=== PATIENT | male | born 1945 | race Caucasian/White ===

== ENCOUNTER 2017-07-03 09:53 | Inpatient (IN) ==
[2017-07-03 10:51] LABS: Basophils # 0.1 10*3/uL (0.0-0.2); Basophils % 0.9 % (0.0-0.8); Eosinophils # 0.6 10*3/uL (0.0-0.87); Eosinophils % 6.5 % (0.00-10.9); Hematocrit 42.9 VOL% (42.0-52.0); Hemoglobin 15.5 GM/DL (14.0-18.0); Immature Granulocytes % 0.6 %; Immature Granulocytes Absolute 0.05 #; Lymphocytes % 33.1 % (21.2-54.2); Mean Corpuscular HGB Conc 36.1 GM/DL (32-36); Mean Corpuscular Hemoglobin 33 PG (27-34); Mean Corpuscular Volume 91.1 FL (87-102); Mean Platelet Volume 10.2 FL (9.6-12.0); Monocytes # 0.8 10*3/uL (0.11-0.8); Neutrophils # 4.5 10*3/uL (1.4-7.4); Neutrophils % 49.9 % (38.7-73.9); Platelet Count 297 T/CUMM (130-400); Red Blood Count 4.71 MC/CUMM (3.8-5.5); Red Cell Distribution Width 12.3 % (9.3-17.3); White Blood Count 8.9 T/CUMM (4-12)
[2017-07-03 10:59] LABS: PT Patient Result 10.6 SECS; Partial Thromboplastin Time 25.2 SECS (0-40)
[2017-07-03 11:19] LABS: Alanine Aminotransferase 46 U/L (16-61); Albumin 3.7 G/DL (3.4-5.0); Alkaline Phosphatase 85 U/L (45-117); Aspartate Amino Transferase 21 U/L (0-37); Blood Urea Nitrogen 24 MG/DL (7-18); Calcium 9.2 MG/DL (8.5-10.1); Glucose 199 MG/DL (74-106); Osmolality,Calculated 286.5 MOS/KG (273-304); Sodium 139 MMOL/L (136-145); Total Protein 7.2 G/DL (6.4-8.3)
[2017-07-03 12:32] LABS: Apearance,Urine CLEAR (Clear); Bilirubin,Urine Negative (Negative); Blood, Urine Negative (Negative); Glucose,Urine (UA) Negative (Negative); Hyaline Casts,Urine 2 /LPF (0-3); Ketones,Urine 5 mg/dL (Negative); Mucus,Urine Occasional /LPF (Occasional); Nitrite,Urine Negative (Negative); Protein,Urine Negative; Urine Color Yellow (Yellow); Urine Specific Gravity 1.023 (1.001-1.035); Urine Urobilinogen < 2.0 EU/DL (0.2-1.0); WBC,Urine 1 /HPF (0-6)
[2017-07-03 12:40] LABS: Barbiturates Screen,Urine Negative (Negative); Benzodiazepines Screen,Urine Negative (Negative); Cannabinoid Screen,Urine Negative (Negative); Opiate Screen,Urine Negative (Negative); Phencyclidine Screen,Urine Negative (Negative)
[2017-07-03] MEDS ORDERED: ONDANSETRON 4 MG/2 ML VIAL IV PRN (14:35)
[2017-07-03] MEDS ORDERED: ACETAMINOPHEN 325 MG TABLET PO PRN (14:35)
[2017-07-03] MEDS ORDERED: INFLUENZA VIRUS VACCINE 0.5 ML SYRINGE IM ONE (15:00)
[2017-07-03] MEDS ORDERED: GLUCAGON 1 MG VIAL IM PRN (15:09)
[2017-07-03] MEDS ORDERED: DEXTROSE 50% 25 GM/50 ML VIAL IV PRN (15:09)
[2017-07-03] MEDS ORDERED: methylPREDNISolone 4 MG TABLET PO SCH (16:30)
[2017-07-03] MEDS: SODIUM CHLORIDE 0.9% 1,000 ML IV SCH (16:42)
[2017-07-03] MEDS: methylPREDNISolone 4 MG TABLET PO SCH ×2 (18:02→20:10)
[2017-07-03] MEDS: DOCUSATE SODIUM 100 MG CAPSULE PO SCH (20:10)
[2017-07-03] MEDS: ACYCLOVIR 200 MG CAPSULE PO SCH (20:10)
[2017-07-03] MEDS ORDERED: tiZANidine 4 MG TABLET PO PRN (21:28)
[2017-07-03] MEDS ORDERED: traMADol 50 MG TABLET PO PRN (21:28)
[2017-07-03] MEDS ORDERED: AMITRIPTYLINE 50 MG TABLET PO SCH (21:30)
[2017-07-03] MEDS ORDERED: PRAVASTATIN 40 MG TABLET PO SCH (21:30)
[2017-07-03] MEDS: GABAPENTIN 300 MG CAPSULE PO SCH (22:06)
[2017-07-04] MEDS: SODIUM CHLORIDE 0.9% 1,000 ML IV SCH ×2 (00:41→10:57)
[2017-07-04 07:00] LABS: Basophils % 0.3 % (0.0-0.8); Eosinophils % 0.3 % (0.00-10.9); Hematocrit 41.8 VOL% (42.0-52.0); Hemoglobin 14.7 GM/DL (14.0-18.0); Immature Granulocytes % 0.8 %; Immature Granulocytes Absolute 0.07 #; Lymphocytes # 1.4 10*3/uL (1.4-4.0); Lymphocytes % 15.7 % (21.2-54.2); Mean Corpuscular HGB Conc 35.2 GM/DL (32-36); Mean Corpuscular Hemoglobin 32 PG (27-34); Mean Corpuscular Volume 91.3 FL (87-102); Mean Platelet Volume 10.1 FL (9.6-12.0); Monocytes # 0.3 10*3/uL (0.11-0.8); Monocytes % 3.1 % (1.7-12.7); Neutrophils # 7.3 10*3/uL (1.4-7.4); Neutrophils % 79.8 % (38.7-73.9); Platelet Count 287 T/CUMM (130-400); Red Blood Count 4.58 MC/CUMM (3.8-5.5); Red Cell Distribution Width 12.2 % (9.3-17.3); White Blood Count 9.1 T/CUMM (4-12)
[2017-07-04 07:23] LABS: Calcium 8.8 MG/DL (8.5-10.1); Osmolality,Calculated 288.4 MOS/KG (273-304); Potassium 4.6 MMOL/L (3.5-5.1)
[2017-07-04] MEDS ORDERED: INSULIN LISPRO 100 UNIT/ML SUBCUT SCH (07:30)
[2017-07-04] MEDS ORDERED: methylPREDNISolone 4 MG TABLET PO SCH ×2 (08:00→09:00)
[2017-07-04 08:20] VITALS: BP 166/77
[2017-07-04] MEDS ORDERED: CARBIDOPA/LEVODOPA 25-100 MG TABLET PO SCH (09:00)
[2017-07-04] MEDS ORDERED: PANTOPRAZOLE 40 MG TABLET PO SCH (09:00)
[2017-07-04] MEDS ORDERED: INDAPAMIDE 2.5 MG TABLET PO SCH (09:00)
[2017-07-04] MEDS ORDERED: BENAZEPRIL 10 MG TABLET PO SCH (09:00)
[2017-07-04] MEDS ORDERED: ASPIRIN EC 81 MG TABLET PO SCH (09:00)
[2017-07-04] MEDS ORDERED: glyBURIDE/METFORMIN 2.5-500 MG TABLET PO SCH (09:00)
[2017-07-04] MEDS ORDERED: NABUMETONE 750 MG TABLET PO SCH (09:00)
[2017-07-04] MEDS: ACYCLOVIR 200 MG CAPSULE PO SCH (09:40)
[2017-07-04] MEDS: DOCUSATE SODIUM 100 MG CAPSULE PO SCH (09:40)
[2017-07-04] MEDS: GABAPENTIN 300 MG CAPSULE PO SCH (09:40)
[2017-07-04] MEDS: methylPREDNISolone 4 MG TABLET PO SCH (09:42)
== END 2017-07-04 11:25 | disposition home or self-care (01) | DRG 74 ==
LOC: N.ED 09:53 → INTOOBSV 12:42 → N.EDINP 12:42 → N.4E 14:27
PROVIDERS: ADMIT Family Medicine; ATTEND Family Medicine

== ENCOUNTER 2018-12-18 10:29 | Inpatient (IN) ==
[~2018-12-18 10:29] MED LIST: MAGNESIUM SULF RIDER 2 GM in PREMIX 1 EACH IV PRN; POTASSIUM CHLORIDE RIDER 10 MEQ in PREMIX 1 EACH IV PRN
[2018-12-18] MEDS ORDERED: diphenhydrAMINE CAP 25 MG CAPSULE ONE (11:28)
[2018-12-18] MEDS ORDERED: DIAZEPAM 5 MG TABLET ONE (11:28)
[2018-12-18] MEDS ORDERED: ASPIRIN 325 MG TABLET ONE (11:28)
[2018-12-18] MEDS: SODIUM CHLORIDE 0.9% 1,000 ML IV SCH (11:43)
[2018-12-18] MEDS ORDERED: MIDAZOLAM 2 MG/2 ML VIAL ONE (11:52)
[2018-12-18] MEDS ORDERED: NITROGLYCERIN DRIP 50 MG/250 ML BOTTLE IV ONE (11:52)
[2018-12-18] MEDS ORDERED: VERAPAMIL 5 MG/2 ML VIAL ONE (11:52)
[2018-12-18] MEDS ORDERED: LIDOCAINE 1% 20 ML VIAL ONE (11:52)
[2018-12-18] MEDS ORDERED: fentaNYL 100 MCG/2 ML VIAL ONE (11:52)
[2018-12-18] MEDS ORDERED: DIAZEPAM 5 MG TABLET PO ONE (12:00)
[2018-12-18] MEDS ORDERED: diphenhydrAMINE CAP 25 MG CAPSULE PO ONE (12:00)
[2018-12-18] MEDS ORDERED: ASPIRIN 325 MG TABLET PO ONE (12:00)
[2018-12-18] MEDS ORDERED: ENOXAPARIN 60 MG/0.6 ML SYRINGE ONE (12:14)
[2018-12-18] MEDS ORDERED: ONDANSETRON 4 MG/2 ML VIAL IV PRN (13:01)
[2018-12-18] MEDS ORDERED: ZALEPLON 5 MG CAPSULE PO PRN (13:01)
[2018-12-18] MEDS ORDERED: NITROGLYCERIN SL 0.4 MG TABLET SL PRN (13:01)
[2018-12-18] MEDS ORDERED: traMADol 50 MG TABLET PO PRN (13:09)
[2018-12-18] MEDS ORDERED: tiZANidine 4 MG TABLET PO PRN (13:09)
[2018-12-18] MEDS ORDERED: methylPREDNISolone 4 MG TABLET PO SCH (13:30)
[2018-12-18] MEDS ORDERED: ALUMINUM/MAGNES/SIMETH MAX STR 30 ML UDCUP PO PRN (15:06)
[2018-12-18] MEDS: ACYCLOVIR 200 MG CAPSULE PO SCH ×2 (15:29→22:16)
[2018-12-18] MEDS: methylPREDNISolone 4 MG TABLET PO SCH ×2 (17:17→22:14)
[2018-12-18] MEDS: AMITRIPTYLINE 50 MG TABLET PO SCH (22:13)
[2018-12-18] MEDS: METOPROLOL TARTRATE 25 MG TABLET PO SCH (22:13)
[2018-12-18] MEDS: BENAZEPRIL 10 MG TABLET PO SCH (22:13)
[2018-12-18] MEDS: GABAPENTIN 300 MG CAPSULE PO SCH (22:14)
[2018-12-18] MEDS: CARBIDOPA/LEVODOPA 25-100 MG TABLET PO SCH (22:15)
[2018-12-18] MEDS: NABUMETONE 500 MG TABLET PO SCH (22:15)
[2018-12-18] MEDS: SIMVASTATIN 20 MG TABLET PO SCH (22:16)
[2018-12-18] MEDS ORDERED: DEXTROSE 50% 25 GM/50 ML SYRINGE IV PRN (23:04)
[2018-12-18] MEDS ORDERED: GLUCAGON 1 MG VIAL IM PRN (23:04)
[2018-12-18] MEDS: INSULIN LISPRO 100 UNIT/ML SUBCUT SCH (23:21)
[2018-12-19 05:01] LABS: Basophils # 0.1 10*3/uL (0.0-0.2); Basophils % 0.4 % (0.0-0.8); Eosinophils # 0.2 10*3/uL (0.0-0.87); Eosinophils % 1.4 % (0.00-10.9); Hematocrit 40.3 VOL% (42.0-52.0); Hemoglobin 13.3 GM/DL (14.0-18.0); Immature Granulocytes % 1.1 %; Immature Granulocytes Absolute 0.13 #; Lymphocytes # 1.4 10*3/uL (1.4-4.0); Lymphocytes % 12.3 % (21.2-54.2); Mean Corpuscular Volume 96.6 FL (87-102); Mean Platelet Volume 10.4 FL (9.6-12.0); Monocytes % 2.6 % (1.7-12.7); Neutrophils % 82.2 % (38.7-73.9); Platelet Count 278 T/CUMM (130-400); Red Blood Count 4.17 MC/CUMM (3.8-5.5); Red Cell Distribution Width 12.4 % (9.3-17.3); White Blood Count 11.5 T/CUMM (4-12)
[2018-12-19 05:26] LABS: Calcium 8.8 MG/DL (8.5-10.1); Osmolality,Calculated 293.3 MOS/KG (273-304); Risk Ratio 4.25; VLDL CHOLESTEROL 17.8 MG/DL
[2018-12-19] MEDS ORDERED: ENOXAPARIN 40 MG/0.4 ML SYRINGE SUBCUT SCH (06:00)
[2018-12-19] MEDS ORDERED: CEFUROXIME INJ 1,500 MG in SYRINGE 1 EACH IV ONE (06:27)
[2018-12-19] MEDS ORDERED: DEXTROSE 50% 25 GM/50 ML VIAL IV PRN (06:27)
[2018-12-19] MEDS: NABUMETONE 500 MG TABLET PO SCH ×2 (08:45→21:14)
[2018-12-19] MEDS: ENALAPRIL 10 MG TABLET PO SCH (08:45)
[2018-12-19] MEDS: METOPROLOL TARTRATE 25 MG TABLET PO SCH ×2 (08:45→21:12)
[2018-12-19] MEDS: ASPIRIN EC 81 MG TABLET PO SCH (08:45)
[2018-12-19] MEDS: PANTOPRAZOLE 40 MG TABLET PO SCH (08:45)
[2018-12-19] MEDS: INSULIN LISPRO 100 UNIT/ML SUBCUT SCH ×3 (08:46→17:17)
[2018-12-19] MEDS: INDAPAMIDE 2.5 MG TABLET PO SCH (08:46)
[2018-12-19] MEDS: PIOGLITAZONE 15 MG TABLET PO SCH (08:46)
[2018-12-19] MEDS: ACYCLOVIR 200 MG CAPSULE PO SCH ×3 (08:46→21:13)
[2018-12-19] MEDS: GABAPENTIN 600 MG TABLET PO SCH (08:46)
[2018-12-19] MEDS: methylPREDNISolone 4 MG TABLET PO SCH ×4 (08:46→21:15)
[2018-12-19] MEDS: SODIUM CHLORIDE 0.9% 1,000 ML IV SCH ×3 (08:47→21:18)
[2018-12-19] MEDS ORDERED: diphenhydrAMINE CAP 25 MG CAPSULE PO PRN (10:31)
[2018-12-19] MEDS: CHLORHEXIDINE 4% SOLN 118 ML BOTTLE TOP SCH (14:13)
[2018-12-19] MEDS: CHLORHEXIDINE 0.12% ORAL RINSE 60 ML BOTTLE SWISH/SPIT SCH ×2 (17:17→21:12)
[2018-12-19] MEDS: BENAZEPRIL 10 MG TABLET PO SCH (21:08)
[2018-12-19] MEDS: AMITRIPTYLINE 50 MG TABLET PO SCH (21:12)
[2018-12-19] MEDS: GABAPENTIN 300 MG CAPSULE PO SCH (21:13)
[2018-12-19] MEDS: SIMVASTATIN 20 MG TABLET PO SCH (21:15)
[2018-12-19] MEDS: CARBIDOPA/LEVODOPA 25-100 MG TABLET PO SCH (21:17)
[2018-12-20] MEDS: INSULIN LISPRO 100 UNIT/ML SUBCUT SCH (00:06)
[2018-12-20] MEDS ORDERED: PAPAVERINE 60 MG/2 ML VIAL ONE (04:24)
[2018-12-20] MEDS ORDERED: VANCOMYCIN 1,000 MG VIAL ONE (04:25)
[2018-12-20] MEDS ORDERED: CEFUROXIME 1,500 MG VIAL IV ONE (05:30)
[2018-12-20] MEDS ORDERED: CEFUROXIME INJ 1,500 MG in SODIUM CHLORIDE 0.9% 100 ML IV ONE (05:49)
[2018-12-20] MEDS: ENALAPRIL 10 MG TABLET PO SCH (05:51)
[2018-12-20] MEDS ORDERED: CEFUROXIME INJ 1,500 MG in SYRINGE 1 EACH IV ONE (05:51)
[2018-12-20] MEDS: METOPROLOL TARTRATE 25 MG TABLET PO SCH (05:51)
[2018-12-20] MEDS ORDERED: MIDAZOLAM 10 MG/2 ML VIAL ONE (06:10)
[2018-12-20] MEDS ORDERED: SUFentanil 250 MCG/5 ML AMP ONE ×2 (06:10)
[2018-12-20] MEDS ORDERED: DIAZEPAM 5 MG TABLET PO ONE (06:30)
[2018-12-20] MEDS: SODIUM CHLORIDE 0.9% 1,000 ML IV SCH (07:01)
[2018-12-20] MEDS ORDERED: metFORMIN 500 MG TABLET PO SCH (07:30)
[2018-12-20 07:42] LABS: ABG Base Excess -0.3 MMOL/L (-2.5-2.5); ABG HCO3 24.2 MMOL/L (20-26); ABG Oxygen Saturation 99.9 % (95-100); ABG PH 7.366 (7.35-7.45); ABG TCO2 22.3 MMOL/L (23-27); Glucose Heart Surgery 241 MG/DL (74-106); Hematocrit Heart Surgery 37.7 PERCENT (42-52); Hemoglobin Heart Surgery 12.3 G/DL (14.0-18.0); Ionized Calcium Arterial 1.16 MMOL/L (1.21-1.46); PH Patient Temp Arterial 7.366; Patient Temperature 37 CELCIUS; Potassium Heart/CVR 4.4 MMOL/L (3.5-5.1); Sodium Heart/CVR 140 MMOL/L (135-145)
[2018-12-20 07:54] LABS: Apearance,Urine CLEAR (Clear); Bacteria,Urine Occasional /HPF (Few); Bilirubin,Urine Negative (Negative); Blood, Urine Negative (Negative); Glucose,Urine (UA) 150 mg/dL (Negative); Hyaline Casts,Urine 3 /LPF (0-3); Ketones,Urine Negative (Negative); Mucus,Urine Occasional /LPF (Occasional); Nitrite,Urine Negative (Negative); Protein,Urine Negative; RBC,Urine 2 /HPF (0-4); Urine Color Yellow (Yellow); Urine Specific Gravity 1.023 (1.001-1.035); Urine Urobilinogen < 2.0 EU/DL (0.2-1.0); WBC,Urine 2 /HPF (0-6)
[2018-12-20] MEDS ORDERED: PHENYLEPHRINE DRIP 40 MG/250 ML PREMIX IV ONE (08:42)
[2018-12-20] MEDS ORDERED: NITROPRUSSIDE 50 MG/2 ML VIAL ONE (08:43)
[2018-12-20] MEDS ORDERED: POTASSIUM CHLORIDE RIDER 100 ML IV ONE (08:43)
[2018-12-20] MEDS ORDERED: HEPARIN/NACL 0.9% 2 UNITS/ML 500 ML IV ONE (10:12)
[2018-12-20] MEDS ORDERED: PHENYLEPHRINE DRIP 20 MG/250 ML PREMIX IV ONE ×2 (10:12→13:30)
[2018-12-20] MEDS ORDERED: NITROGLYCERIN DRIP 50 MG/250 ML BOTTLE IV ONE (10:12)
[2018-12-20 10:13] LABS: Hemoglobin Heart Surgery 8.4 G/DL (14.0-18.0); PCO2 Patient Temp Venous 37.4 MM HG; PH Patient Temp Venous 7.41; PO2 Patient Temp Venous 40.2 MM HG; Potassium Heart/CVR 4.6 MMOL/L (3.5-5.1); VBG Base Excess -0.6 MEQ/L (0-4); VBG HCO3 23.7 MEQ/L (24-28); VBG Oxygen Saturation 82.3 %; VBG PCO2 41.2 MMHG (41-51); VBG PH 7.381; VBG PO2 46.1 MMHG (17-40)
[2018-12-20] MEDS ORDERED: AMINOCAPROIC ACID 5,000 MG/20 ML VIAL ONE (10:34)
[2018-12-20] MEDS ORDERED: SODIUM CHLORIDE 0.9% 100 ML IV ONE (10:35)
[2018-12-20] MEDS ORDERED: SODIUM CHLORIDE 0.9% 250 ML IV ONE (10:35)
[2018-12-20] MEDS ORDERED: LACTATED RINGERS 1,000 ML IV ONE (10:35)
[2018-12-20] MEDS ORDERED: ETOMIDATE 40 MG/20 ML VIAL IV ONE (10:35)
[2018-12-20] MEDS ORDERED: VECURONIUM 10 MG VIAL IV ONE (10:35)
[2018-12-20] MEDS ORDERED: MINERAL OIL/PETROLATUM OPH OINT 3.5 GM TUBE ONE (10:35)
[2018-12-20] MEDS ORDERED: SODIUM CHLORIDE 0.9% 1,000 ML IV ONE (10:35)
[2018-12-20] MEDS ORDERED: CALCIUM CHLORIDE 1,000 MG/10 ML VIAL IV ONE (10:35)
[2018-12-20 10:44] LABS: Hematocrit Heart Surgery 24.8 PERCENT (42-52); PCO2 Patient Temp Venous 32.9 MM HG; PH Patient Temp Venous 7.443; PO2 Patient Temp Venous 37.7 MM HG; Potassium Heart/CVR 4.9 MMOL/L (3.5-5.1); VBG Base Excess -1.1 MEQ/L (0-4); VBG HCO3 23.3 MEQ/L (24-28); VBG Oxygen Saturation 83.2 %; VBG PH 7.399; VBG PO2 46.4 MMHG (17-40)
[2018-12-20 11:14] LABS: Hemoglobin Heart Surgery 8.7 G/DL (14.0-18.0); PCO2 Patient Temp Venous 32.2 MM HG; PH Patient Temp Venous 7.436; PO2 Patient Temp Venous 37.3 MM HG; Potassium Heart/CVR 5.7 MMOL/L (3.5-5.1); VBG Base Excess -2.7 MEQ/L (0-4); VBG HCO3 21.4 MEQ/L (24-28); VBG Oxygen Saturation 74.2 %; VBG PCO2 33.6 MMHG (41-51); VBG PH 7.421
[2018-12-20] MEDS ORDERED: MANNITOL 100 GM/500 ML BAG IV ONE (11:43)
[2018-12-20] MEDS ORDERED: DEXTROSE 5% KCL 20 MEQ 20 MEQ/1,000 ML BAG IV ONE (11:44)
[2018-12-20] MEDS ORDERED: ALBUMIN 25% 25 GM/100 ML VIAL IV ONE (11:44)
[2018-12-20] MEDS ORDERED: PROTAMINE SULFATE 250 MG/25 ML VIAL IV ONE (11:44)
[2018-12-20] MEDS ORDERED: MAGNESIUM SULFATE 5 GM/10 ML VIAL IV ONE (11:44)
[2018-12-20] MEDS ORDERED: SODIUM BICARBONATE 50 MEQ/50 ML VIAL IV ONE (11:44)
[2018-12-20] MEDS ORDERED: HEPARIN 10,000 UNIT/10 ML VIAL ONE (11:45)
[2018-12-20] MEDS ORDERED: FUROSEMIDE 20 MG/2 ML VIAL ONE (11:45)
[2018-12-20] MEDS ORDERED: methylPREDNISolone SOD SUC 1,000 MG/8 ML VIAL ONE (11:45)
[2018-12-20 12:02] LABS: ABG Base Excess -2.2 MMOL/L (-2.5-2.5); ABG HCO3 22.6 MMOL/L (20-26); ABG Oxygen Saturation 99.4 % (95-100); ABG PCO2 38.3 MM HG (35-48); ABG PH 7.379 (7.35-7.45); ABG TCO2 20.7 MMOL/L (23-27); Glucose Heart Surgery 347 MG/DL (74-106); Hematocrit Heart Surgery 29.8 PERCENT (42-52); Hemoglobin Heart Surgery 9.6 G/DL (14.0-18.0); Ionized Calcium Arterial 1.17 MMOL/L (1.21-1.46); PCO2 Patient Temp Arterial 38.3 MMHG; PH Patient Temp Arterial 7.379; Patient Temperature 37 CELCIUS; Potassium Heart/CVR 4.5 MMOL/L (3.5-5.1); Sodium Heart/CVR 136 MMOL/L (135-145)
[2018-12-20] MEDS: LACTATED RINGERS 1,000 ML IV PRN ×3 (12:45→16:46)
[2018-12-20] MEDS ORDERED: ALBUMIN 5% 12.5 GM/250 ML VIAL IV ONE (13:12)
[2018-12-20] MEDS ORDERED: NITROPRUSSIDE 100 MG in DEXTROSE 5% 250 ML IV PRN (13:30)
[2018-12-20] MEDS ORDERED: MAGNESIUM SULF RIDER 2 GM in PREMIX 1 EACH IV PRN (13:30)
[2018-12-20] MEDS ORDERED: ONDANSETRON 4 MG/2 ML VIAL IV PRN (13:30)
[2018-12-20] MEDS ORDERED: ACETAMINOPHEN 650 MG SUPP RECTAL PRN (13:30)
[2018-12-20] MEDS ORDERED: SODIUM CHLORIDE 0.45% 1,000 ML IV SCH ×2 (13:30)
[2018-12-20] MEDS ORDERED: POTASSIUM CHLORIDE RIDER 10 MEQ in PREMIX 1 EACH IV PRN (13:30)
[2018-12-20] MEDS ORDERED: LACTATED RINGERS 250 ML IV PRN (13:30)
[2018-12-20] MEDS ORDERED: VECURONIUM 10 MG VIAL IV PRN ×2 (13:30)
[2018-12-20] MEDS ORDERED: MAGNESIUM SULF RIDER 4 GM in PREMIX 1 EACH IV PRN (13:30)
[2018-12-20] MEDS ORDERED: DEXTROSE 50% 25 GM/50 ML SYRINGE IV PRN ×2 (13:30)
[2018-12-20] MEDS ORDERED: MORPHINE 10 MG/1 ML VIAL IV PRN (13:30)
[2018-12-20] MEDS ORDERED: INSULIN REGULAR 100 UNIT/ML IV ONE (13:30)
[2018-12-20] MEDS ORDERED: MIDAZOLAM 10 MG/2 ML VIAL IV PRN (13:30)
[2018-12-20] MEDS ORDERED: PHENYLEPHRINE DRIP 40 MG/250 ML PREMIX IV PRN (13:30)
[2018-12-20] MEDS ORDERED: MIDAZOLAM 2 MG/2 ML VIAL IV PRN (13:30)
[2018-12-20] MEDS ORDERED: CALCIUM CHLORIDE 1,000 MG/10 ML SYRINGE IV PRN (13:30)
[2018-12-20] MEDS ORDERED: KETOROLAC 30 MG/1 ML VIAL IV SCH (13:30)
[2018-12-20 13:37] LABS: Basophils # 0.1 10*3/uL (0.0-0.2); Basophils % 0.4 % (0.0-0.8); Eosinophils # 0.4 10*3/uL (0.0-0.87); Eosinophils % 1.9 % (0.00-10.9); Hematocrit 31.2 VOL% (42.0-52.0); Hemoglobin 9.9 GM/DL (14.0-18.0); Immature Granulocytes % 1.6 %; Immature Granulocytes Absolute 0.35 #; Lymphocytes # 3.1 10*3/uL (1.4-4.0); Lymphocytes % 14.2 % (21.2-54.2); Mean Corpuscular HGB Conc 31.7 GM/DL (32-36); Mean Corpuscular Volume 99.4 FL (87-102); Mean Platelet Volume 10.4 FL (9.6-12.0); Monocytes % 5.6 % (1.7-12.7); Neutrophils % 76.3 % (38.7-73.9); Platelet Count 246 T/CUMM (130-400); Red Blood Count 3.14 MC/CUMM (3.8-5.5); Red Cell Distribution Width 13.1 % (9.3-17.3); White Blood Count 21.8 T/CUMM (4-12)
[2018-12-20 13:38] LABS: ABG Base Excess -3.8 MMOL/L (-2.5-2.5); ABG HCO3 21.2 MMOL/L (20-26); ABG Oxygen Saturation 96.2 % (95-100); ABG PH 7.307 (7.35-7.45); ABG PO2 88.1 MM HG (80-95); ABG TCO2 20.6 MMOL/L (23-27); Glucose Heart Surgery 333 MG/DL (74-106); Hematocrit Heart Surgery 31.9 PERCENT (42-52); Hemoglobin Heart Surgery 10.3 G/DL (14.0-18.0); Potassium Heart/CVR 4.2 MMOL/L (3.5-5.1)
[2018-12-20 13:42] LABS: INR 1.1; PT Patient Result 11.9 SECS; Partial Thromboplastin Time 23.5 SECS (0-40)
[2018-12-20 13:52] LABS: Albumin 3.1 G/DL (3.4-5.0); Bilirubin,Total 0.5 MG/DL (0.2-1.0); Osmolality,Calculated 303.1 MOS/KG (273-304); Total Protein 5.6 G/DL (6.4-8.3)
[2018-12-20 13:54] LABS: CKMB % 6.1 %
[2018-12-20 13:57] LABS: Troponin I 4.18 NG/ML (0.00-0.045)
[2018-12-20] MEDS: MORPHINE 4 MG/1 ML VIAL IV PRN (14:25)
[2018-12-20] MEDS: INSULIN REGULAR DRIP 100 ML IV SCH ×2 (14:31→23:09)
[2018-12-20 14:55] LABS: ABG Base Excess -3.1 MMOL/L (-2.5-2.5); ABG HCO3 21.8 MMOL/L (20-26); ABG Oxygen Saturation 94.8 % (95-100); ABG PCO2 41.4 MM HG (35-48); ABG PH 7.343 (7.35-7.45); ABG PO2 76.6 MM HG (80-95); ABG TCO2 20.4 MMOL/L (23-27); Glucose Heart Surgery 338 MG/DL (74-106); Hematocrit Heart Surgery 33.2 PERCENT (42-52); Hemoglobin Heart Surgery 10.8 G/DL (14.0-18.0); Potassium Heart/CVR 3.9 MMOL/L (3.5-5.1)
[2018-12-20 15:54] LABS: Band Neutrophils 4 % (0-10); Lymphocytes 7 % (20-55); Platelet Estimate Normal; Segmented Neutrophils 87 % (50-85); Total Cells Counted 100
[2018-12-20 16:03] LABS: ABG Base Excess -3.7 MMOL/L (-2.5-2.5); ABG HCO3 21.6 MMOL/L (20-26); ABG Oxygen Saturation 96.5 % (95-100); ABG PCO2 40.2 MM HG (35-48); ABG PH 7.348 (7.35-7.45); ABG PO2 99.5 MM HG (80-95); ABG TCO2 22.8 MMOL/L (23-27); Glucose Heart Surgery 273 MG/DL (74-106); Hemoglobin Heart Surgery 10.5 G/DL (14.0-18.0)
[2018-12-20] MEDS: INSULIN REGULAR 100 UNIT/ML IV PRN ×3 (16:12→22:10)
[2018-12-20] MEDS: POTASSIUM CHLORIDE RIDER 20 MEQ in PREMIX 1 EACH IV PRN (16:25)
[2018-12-20 17:33] LABS: ABG Base Excess -2.7 MMOL/L (-2.5-2.5); ABG HCO3 22.6 MMOL/L (20-26); ABG Oxygen Saturation 95.1 % (95-100); ABG PCO2 40.9 MM HG (35-48); ABG PO2 84.3 MM HG (80-95); ABG TCO2 23.8 MMOL/L (23-27); Glucose Heart Surgery 254 MG/DL (74-106); Hemoglobin Heart Surgery 11.1 G/DL (14.0-18.0); Potassium Heart/CVR 4.4 MMOL/L (3.5-5.1)
[2018-12-20 19:03] LABS: ABG Base Excess -2.6 MMOL/L (-2.5-2.5); ABG HCO3 22.7 MMOL/L (20-26); ABG Oxygen Saturation 95.1 % (95-100); ABG PCO2 41.1 MM HG (35-48); ABG PO2 88.2 MM HG (80-95); Glucose Heart Surgery 248 MG/DL (74-106); Hemoglobin Heart Surgery 11.2 G/DL (14.0-18.0); Potassium Heart/CVR 4.4 MMOL/L (3.5-5.1)
[2018-12-20 20:20] LABS: ABG Base Excess -1.8 MMOL/L (-2.5-2.5); ABG HCO3 22.9 MMOL/L (20-26); ABG Oxygen Saturation 96.8 % (95-100); ABG PCO2 40.3 MM HG (35-48); ABG PO2 89.3 MM HG (80-95); ABG TCO2 21.1 MMOL/L (23-27); Glucose Heart Surgery 256 MG/DL (74-106); Hematocrit Heart Surgery 32.8 PERCENT (42-52); Hemoglobin Heart Surgery 10.6 G/DL (14.0-18.0); Potassium Heart/CVR 4.2 MMOL/L (3.5-5.1)
[2018-12-20] MEDS: CEFUROXIME INJ 1,500 MG in SYRINGE 1 EACH IV SCH (20:37)
[2018-12-20 21:14] LABS: ABG Base Excess -1.3 MMOL/L (-2.5-2.5); ABG HCO3 23.3 MMOL/L (20-26); ABG Oxygen Saturation 96.6 % (95-100); ABG PCO2 42.7 MM HG (35-48); ABG PH 7.361 (7.35-7.45); ABG TCO2 21.8 MMOL/L (23-27); Glucose Heart Surgery 232 MG/DL (74-106); Hemoglobin Heart Surgery 10.7 G/DL (14.0-18.0)
[2018-12-20] MEDS: CHLORHEXIDINE 0.12% ORAL RINSE 60 ML BOTTLE SWISH/SPIT SCH (22:11)
[2018-12-20] MEDS ORDERED: FUROSEMIDE 40 MG/4 ML VIAL IV ONE (22:15)
[2018-12-20] MEDS: ALBUMIN 5% 12.5 GM in PREMIX 1 EACH IV PRN (22:21)
[2018-12-20 22:33] LABS: CKMB % 3.9 %
[2018-12-20 22:36] LABS: Troponin I 4.48 NG/ML (0.00-0.045)
[2018-12-20 23:10] LABS: ABG HCO3 23.5 MMOL/L (20-26); ABG Oxygen Saturation 97.1 % (95-100); ABG PCO2 45.6 MM HG (35-48); ABG PH 7.345 (7.35-7.45); ABG PO2 91.8 MM HG (80-95); ABG TCO2 22.6 MMOL/L (23-27); Glucose Heart Surgery 180 MG/DL (74-106); Hematocrit Heart Surgery 32.6 PERCENT (42-52); Hemoglobin Heart Surgery 10.6 G/DL (14.0-18.0); Potassium Heart/CVR 3.7 MMOL/L (3.5-5.1)
[2018-12-21 00:17] LABS: ABG Base Excess -0.1 MMOL/L (-2.5-2.5); ABG HCO3 24.3 MMOL/L (20-26); ABG Oxygen Saturation 97.1 % (95-100); ABG PCO2 44.3 MM HG (35-48); ABG PH 7.367 (7.35-7.45); ABG PO2 88.1 MM HG (80-95); ABG TCO2 23.1 MMOL/L (23-27); Glucose Heart Surgery 154 MG/DL (74-106); Hematocrit Heart Surgery 32.4 PERCENT (42-52); Hemoglobin Heart Surgery 10.5 G/DL (14.0-18.0); Potassium Heart/CVR 3.7 MMOL/L (3.5-5.1)
[2018-12-21 00:58] LABS: ABG Base Excess -0.1 MMOL/L (-2.5-2.5); ABG HCO3 24.2 MMOL/L (20-26); ABG Oxygen Saturation 92.8 % (95-100); ABG PCO2 44.1 MM HG (35-48); ABG PH 7.368 (7.35-7.45); ABG PO2 65.7 MM HG (80-95); ABG TCO2 23.1 MMOL/L (23-27); Glucose Heart Surgery 125 MG/DL (74-106); Hematocrit Heart Surgery 32.2 PERCENT (42-52); Hemoglobin Heart Surgery 10.4 G/DL (14.0-18.0); Potassium Heart/CVR 3.7 MMOL/L (3.5-5.1)
[2018-12-21 01:36] LABS: ABG Base Excess 0.6 MMOL/L (-2.5-2.5); ABG HCO3 24.9 MMOL/L (20-26); ABG Oxygen Saturation 94.9 % (95-100); ABG PCO2 44.6 MM HG (35-48); ABG PH 7.374 (7.35-7.45); ABG PO2 74.4 MM HG (80-95); ABG TCO2 23.6 MMOL/L (23-27); Glucose Heart Surgery 107 MG/DL (74-106); Hematocrit Heart Surgery 32.2 PERCENT (42-52); Hemoglobin Heart Surgery 10.4 G/DL (14.0-18.0); Potassium Heart/CVR 3.7 MMOL/L (3.5-5.1)
[2018-12-21] MEDS: ALBUTEROL/IPRATROPIUM 3 ML NEB RESP TX SCH ×6 (02:24→23:18)
[2018-12-21 04:13] LABS: ABG Base Excess -1.1 MMOL/L (-2.5-2.5); ABG HCO3 23.5 MMOL/L (20-26); ABG Oxygen Saturation 96.4 % (95-100); ABG PCO2 42.2 MM HG (35-48); ABG PH 7.367 (7.35-7.45); ABG PO2 85.5 MM HG (80-95); ABG TCO2 22.1 MMOL/L (23-27); Glucose Heart Surgery 182 MG/DL (74-106); Hematocrit Heart Surgery 31.5 PERCENT (42-52); Hemoglobin Heart Surgery 10.2 G/DL (14.0-18.0)
[2018-12-21 04:13] LABS: Basophils % 0.2 % (0.0-0.8); Hematocrit 30.9 VOL% (42.0-52.0); Hemoglobin 10.1 GM/DL (14.0-18.0); Immature Granulocytes % 1.1 %; Immature Granulocytes Absolute 0.21 #; Lymphocytes # 1.5 10*3/uL (1.4-4.0); Lymphocytes % 7.5 % (21.2-54.2); Mean Corpuscular HGB Conc 32.7 GM/DL (32-36); Mean Platelet Volume 10.8 FL (9.6-12.0); Monocytes % 10.8 % (1.7-12.7); Neutrophils % 80.4 % (38.7-73.9); Platelet Count 237 T/CUMM (130-400); Red Blood Count 3.12 MC/CUMM (3.8-5.5); Red Cell Distribution Width 13.2 % (9.3-17.3); White Blood Count 19.6 T/CUMM (4-12)
[2018-12-21 04:49] LABS: Alanine Aminotransferase 33 U/L (16-61); Albumin 3.3 G/DL (3.4-5.0); Alkaline Phosphatase 52 U/L (45-117); Aspartate Amino Transferase 32 U/L (0-37); Bilirubin,Direct < 0.100 MG/DL (0.0-0.20); Bilirubin,Total < 0.39 MG/DL (0.2-1.0); Blood Urea Nitrogen 42 MG/DL (7-18); Calcium 8.2 MG/DL (8.5-10.1); Glucose 163 MG/DL (74-106); Osmolality,Calculated 297.1 MOS/KG (273-304); Total Protein 5.9 G/DL (6.4-8.3)
[2018-12-21 04:51] LABS: CKMB % 2.9 %
[2018-12-21 05:01] LABS: Troponin I 4.23 NG/ML (0.00-0.045)
[2018-12-21 06:06] LABS: ABG Base Excess -0.3 MMOL/L (-2.5-2.5); ABG HCO3 24.3 MMOL/L (20-26); ABG Oxygen Saturation 93.2 % (95-100); ABG PCO2 39.5 MM HG (35-48); ABG PH 7.407 (7.35-7.45); ABG TCO2 25.5 MMOL/L (23-27); Glucose Heart Surgery 161 MG/DL (74-106); Hemoglobin Heart Surgery 11.2 G/DL (14.0-18.0); Potassium Heart/CVR 3.7 MMOL/L (3.5-5.1)
[2018-12-21] MEDS: POTASSIUM CHLORIDE RIDER 20 MEQ in PREMIX 1 EACH IV PRN (06:53)
[2018-12-21] MEDS: CEFUROXIME INJ 1,500 MG in SYRINGE 1 EACH IV SCH (08:41)
[2018-12-21] MEDS: MORPHINE 4 MG/1 ML VIAL IV PRN ×3 (09:05→12:58)
[2018-12-21] MEDS ORDERED: ALUMINUM/MAGNES/SIMETH MAX STR 30 ML UDCUP PO PRN ×2 (09:27→11:40)
[2018-12-21] MEDS ORDERED: tiZANidine 4 MG TABLET PO PRN (09:27)
[2018-12-21] MEDS ORDERED: diphenhydrAMINE CAP 25 MG CAPSULE PO PRN (09:27)
[2018-12-21] MEDS: CHLORHEXIDINE 0.12% ORAL RINSE 60 ML BOTTLE SWISH/SPIT SCH ×2 (09:28→19:28)
[2018-12-21] MEDS ORDERED: METOPROLOL TARTRATE 25 MG TABLET PO SCH (10:00)
[2018-12-21] MEDS: GABAPENTIN 600 MG TABLET PO SCH ×2 (10:18→19:28)
[2018-12-21] MEDS: PIOGLITAZONE 15 MG TABLET PO SCH ×2 (10:19→19:27)
[2018-12-21] MEDS: ACYCLOVIR 200 MG CAPSULE PO SCH ×3 (10:20→19:29)
[2018-12-21] MEDS: NABUMETONE 500 MG TABLET PO SCH ×2 (10:20→19:28)
[2018-12-21] MEDS: ASPIRIN EC 81 MG TABLET PO SCH ×2 (10:21→19:27)
[2018-12-21 10:38] LABS: ABG Base Excess -2.2 MMOL/L (-2.5-2.5); ABG HCO3 22.5 MMOL/L (20-26); ABG Oxygen Saturation 93.9 % (95-100); ABG PCO2 39.7 MM HG (35-48); ABG PH 7.367 (7.35-7.45); ABG PO2 71.7 MM HG (80-95); ABG TCO2 20.8 MMOL/L (23-27); Glucose Heart Surgery 196 MG/DL (74-106); Hematocrit Heart Surgery 32.1 PERCENT (42-52); Hemoglobin Heart Surgery 10.4 G/DL (14.0-18.0)
[2018-12-21] MEDS ORDERED: MAGNESIUM SULF RIDER 4 GM in PREMIX 1 EACH IV PRN (11:40)
[2018-12-21] MEDS ORDERED: GLUCAGON 1 MG VIAL IM PRN ×2 (11:40)
[2018-12-21] MEDS ORDERED: DEXTROSE 50% 25 GM/50 ML SYRINGE IV PRN (11:40)
[2018-12-21] MEDS ORDERED: MAGNESIUM SULF RIDER 2 GM in PREMIX 1 EACH IV PRN (11:40)
[2018-12-21] MEDS ORDERED: DEXTROSE 50% 25 GM/50 ML VIAL IV PRN (11:40)
[2018-12-21] MEDS ORDERED: MAGNESIUM HYDROXIDE SUSP 30 ML UDCUP PO PRN (11:40)
[2018-12-21] MEDS ORDERED: SODIUM CHLOR 0.45% KCL 20 MEQ 20 MEQ/1,000 ML BAG IV SCH (11:40)
[2018-12-21] MEDS ORDERED: ZALEPLON 5 MG CAPSULE PO PRN (11:40)
[2018-12-21] MEDS: oxyCODONE/ACETAMINOPHEN 5-325 MG TABLET PO PRN (11:59)
[2018-12-21] MEDS: INSULIN REGULAR 100 UNIT/ML SUBCUT SCH ×3 (12:05→22:01)
[2018-12-21] MEDS: INDAPAMIDE 2.5 MG TABLET PO SCH ×2 (12:23→19:28)
[2018-12-21] MEDS: methylPREDNISolone 4 MG TABLET PO SCH ×2 (12:24→19:27)
[2018-12-21] MEDS ORDERED: HYDROmorphone 2 MG/1 ML VIAL IV PRN ×2 (13:57→20:21)
[2018-12-21] MEDS: ONDANSETRON 4 MG/2 ML VIAL IV PRN ×2 (14:15→20:59)
[2018-12-21] MEDS: glyBURIDE 2.5 MG TABLET PO SCH ×2 (16:38→19:26)
[2018-12-21] MEDS ORDERED: FUROSEMIDE 40 MG/4 ML VIAL IV ONE (18:40)
[2018-12-21] MEDS: SODIUM CHLORIDE 0.9% 1,000 ML IV SCH (19:25)
[2018-12-21] MEDS: INSULIN LISPRO 100 UNIT/ML SUBCUT SCH (19:27)
[2018-12-21] MEDS: PANTOPRAZOLE 40 MG TABLET PO SCH (19:28)
[2018-12-21] MEDS: METOPROLOL TARTRATE 25 MG TABLET PO SCH (19:28)
[2018-12-21] MEDS: ENALAPRIL 10 MG TABLET PO SCH (19:29)
[2018-12-21] MEDS ORDERED: DOBUTamine 500 MG/250 ML PREMIX IV PRN (20:15)
[2018-12-21] MEDS ORDERED: ALBUMIN 5% 12.5 GM in PREMIX 1 EACH IV ONE (20:17)
[2018-12-21] MEDS ORDERED: ALBUMIN 5% 25 GM in PREMIX 1 EACH IV ONE ×2 (20:20→22:41)
[2018-12-21] MEDS ORDERED: FUROSEMIDE INJ 100 MG in SODIUM CHLORIDE 0.9% 90 ML IV SCH (20:30)
[2018-12-21] MEDS ORDERED: ENALAPRIL 10 MG TABLET PO SCH (21:00)
[2018-12-21 21:42] LABS: ABG Base Excess -4.3 MMOL/L (-2.5-2.5); ABG HCO3 20.7 MMOL/L (20-26); ABG Oxygen Saturation 89.5 % (95-100); ABG PCO2 46.8 MM HG (35-48); ABG PH 7.286 (7.35-7.45); ABG PO2 62.7 MM HG (80-95); ABG TCO2 20.7 MMOL/L (23-27); Glucose Heart Surgery 300 MG/DL (74-106); Hematocrit Heart Surgery 30.2 PERCENT (42-52); Hemoglobin Heart Surgery 9.7 G/DL (14.0-18.0)
[2018-12-21] MEDS ORDERED: PHENYLEPHRINE DRIP 40 MG/250 ML PREMIX IV ONE (21:49)
[2018-12-21] MEDS: PHENYLEPHRINE DRIP 40 MG/250 ML PREMIX IV PRN (21:52)
[2018-12-21] MEDS ORDERED: SUCCINYLCHOLINE 200 MG/10 ML VIAL ONE (22:09)
[2018-12-21] MEDS ORDERED: ETOMIDATE 20 MG/10 ML VIAL IV ONE (22:09)
[2018-12-21] MEDS ORDERED: PROPOFOL 1,000 MG/100 ML BOTTLE IV ONE (22:12)
[2018-12-21 22:33] LABS: Calcium 7.9 MG/DL (8.5-10.1); Osmolality,Calculated 305.4 MOS/KG (273-304)
[2018-12-21] MEDS ORDERED: SODIUM BICARBONATE 50 MEQ/50 ML VIAL IV ONE (22:40)
[2018-12-21] MEDS: PROPOFOL 1,000 MG/100 ML BOTTLE IV SCH (22:47)
[2018-12-21] MEDS: ALBUMIN 5% 12.5 GM in PREMIX 1 EACH IV PRN (22:51)
[2018-12-21] MEDS: FUROSEMIDE INJ 100 MG in SODIUM CHLORIDE 0.9% 90 ML IV SCH (23:00)
[2018-12-21] MEDS: SODIUM CHLORIDE 0.45% 1,000 ML IV SCH (23:00)
[2018-12-21 23:13] LABS: ABG Base Excess -3.3 MMOL/L (-2.5-2.5); ABG HCO3 21.7 MMOL/L (20-26); ABG Oxygen Saturation 98.5 % (95-100); ABG PCO2 48.1 MM HG (35-48); ABG PH 7.294 (7.35-7.45); ABG TCO2 21.8 MMOL/L (23-27)
[2018-12-22 01:00] LABS: ABG Base Excess -3.8 MMOL/L (-2.5-2.5); ABG HCO3 21.2 MMOL/L (20-26); ABG Oxygen Saturation 98.2 % (95-100); ABG PCO2 36.5 MM HG (35-48); ABG PH 7.368 (7.35-7.45); ABG TCO2 19.5 MMOL/L (23-27)
[2018-12-22] MEDS: PHENYLEPHRINE DRIP 40 MG/250 ML PREMIX IV PRN ×6 (01:22→20:57)
[2018-12-22] MEDS ORDERED: SUCCINYLCHOLINE 200 MG/10 ML VIAL IV ONE (01:50)
[2018-12-22] MEDS ORDERED: ETOMIDATE 20 MG/10 ML VIAL IV ONE (01:51)
[2018-12-22] MEDS: ALBUTEROL/IPRATROPIUM 3 ML NEB RESP TX SCH ×5 (02:30→19:33)
[2018-12-22] MEDS: MORPHINE 4 MG/1 ML VIAL IV PRN (03:30)
[2018-12-22] MEDS: GABAPENTIN 300 MG CAPSULE PO SCH ×2 (04:01→20:56)
[2018-12-22] MEDS: AMITRIPTYLINE 50 MG TABLET PO SCH ×2 (04:01→20:56)
[2018-12-22] MEDS: INSULIN REGULAR 100 UNIT/ML SUBCUT SCH ×6 (04:02→20:56)
[2018-12-22] MEDS: SIMVASTATIN 20 MG TABLET PO SCH ×2 (04:02→20:55)
[2018-12-22] MEDS: NABUMETONE 500 MG TABLET PO SCH ×3 (04:02→20:55)
[2018-12-22] MEDS: ACYCLOVIR 200 MG CAPSULE PO SCH ×4 (04:02→20:55)
[2018-12-22] MEDS: CARBIDOPA/LEVODOPA 25-100 MG TABLET PO SCH ×2 (04:02→20:55)
[2018-12-22] MEDS: CHLORHEXIDINE 0.12% ORAL RINSE 60 ML BOTTLE SWISH/SPIT SCH ×3 (04:02→21:10)
[2018-12-22 04:07] LABS: ABG Base Excess -1.3 MMOL/L (-2.5-2.5); ABG HCO3 22.6 MMOL/L (20-26); ABG Oxygen Saturation 97.5 % (95-100); ABG PCO2 34.4 MM HG (35-48); ABG PH 7.435 (7.35-7.45); ABG PO2 107.5 MM HG (80-95); ABG TCO2 23.6 MMOL/L (23-27)
[2018-12-22 04:09] LABS: Basophils % 0.2 % (0.0-0.8); Eosinophils % 0.1 % (0.00-10.9); Hematocrit 26.4 VOL% (42.0-52.0); Hemoglobin 8.4 GM/DL (14.0-18.0); Immature Granulocytes % 1.2 %; Immature Granulocytes Absolute 0.21 #; Lymphocytes # 2.5 10*3/uL (1.4-4.0); Lymphocytes % 14.1 % (21.2-54.2); Mean Corpuscular HGB Conc 31.8 GM/DL (32-36); Mean Corpuscular Volume 100.8 FL (87-102); Monocytes % 8.6 % (1.7-12.7); NRBC # 0.03 10*3/uL; Neutrophils % 75.8 % (38.7-73.9); Platelet Count 220 T/CUMM (130-400); Red Blood Count 2.62 MC/CUMM (3.8-5.5); Red Cell Distribution Width 13.6 % (9.3-17.3); White Blood Count 17.8 T/CUMM (4-12)
[2018-12-22 04:39] LABS: Albumin 3.3 G/DL (3.4-5.0); Bilirubin,Direct 0.16 MG/DL (0.0-0.20); Bilirubin,Indirect 0.2 MG/DL (0.0-1.0); Bilirubin,Total 0.4 MG/DL (0.2-1.0); CKMB % 1.3 %; Calcium 7.6 MG/DL (8.5-10.1); Osmolality,Calculated 305.4 MOS/KG (273-304)
[2018-12-22 04:45] LABS: Troponin I 1.22 NG/ML (0.00-0.045)
[2018-12-22] MEDS: FUROSEMIDE INJ 100 MG in SODIUM CHLORIDE 0.9% 90 ML IV SCH ×3 (05:12→09:09)
[2018-12-22] MEDS ORDERED: FUROSEMIDE 40 MG/4 ML VIAL IV ONE ×2 (06:00)
[2018-12-22] MEDS: PROPOFOL 1,000 MG/100 ML BOTTLE IV SCH ×4 (06:54→23:18)
[2018-12-22] MEDS: glyBURIDE 2.5 MG TABLET PO SCH ×2 (07:23→15:49)
[2018-12-22] MEDS ORDERED: PANTOPRAZOLE 40 MG TABLET PO SCH (09:00)
[2018-12-22] MEDS: SODIUM CHLORIDE 0.45% 1,000 ML IV SCH ×2 (09:08→19:13)
[2018-12-22] MEDS: PIOGLITAZONE 15 MG TABLET PO SCH (09:08)
[2018-12-22] MEDS: ASPIRIN EC 81 MG TABLET PO SCH (09:08)
[2018-12-22] MEDS: DOCUSATE SODIUM 100 MG CAPSULE PO SCH (09:09)
[2018-12-22] MEDS: GABAPENTIN 600 MG TABLET PO SCH (09:09)
[2018-12-22] MEDS: INDAPAMIDE 2.5 MG TABLET PO SCH (09:09)
[2018-12-22] MEDS: FERROUS SULFATE 325 MG TABLET PO SCH (09:09)
[2018-12-22] MEDS ORDERED: HEPARIN/NACL 0.9% 2 UNITS/ML 500 ML IV ONE (09:20)
[2018-12-22] MEDS: PANTOPRAZOLE 40 MG VIAL IV SCH (09:33)
[2018-12-22] MEDS: methylPREDNISolone 4 MG TABLET PO SCH (13:54)
[2018-12-22] MEDS: metFORMIN 500 MG TABLET PO SCH (15:49)
[2018-12-22] MEDS: ACETAMINOPHEN 325 MG TABLET PO PRN (20:56)
[2018-12-22] MEDS: CHLORHEXIDINE 4% SOLN 118 ML BOTTLE TOP SCH (21:36)
[2018-12-22] MEDS: SODIUM CHLORIDE 0.9% 1,000 ML IV SCH (21:38)
[2018-12-23] MEDS: ALBUTEROL/IPRATROPIUM 3 ML NEB RESP TX SCH ×7 (00:03→23:27)
[2018-12-23] MEDS: INSULIN REGULAR 100 UNIT/ML SUBCUT SCH ×6 (00:32→22:01)
[2018-12-23] MEDS: PROPOFOL 1,000 MG/100 ML BOTTLE IV SCH ×4 (02:36→23:06)
[2018-12-23] MEDS: PHENYLEPHRINE DRIP 40 MG/250 ML PREMIX IV PRN (04:15)
[2018-12-23] MEDS: SODIUM CHLORIDE 0.45% 1,000 ML IV SCH ×3 (05:38→23:08)
[2018-12-23 05:46] LABS: ABG Base Excess 0.6 MMOL/L (-2.5-2.5); ABG Oxygen Saturation 98.4 % (95-100); ABG PCO2 31.8 MM HG (35-48); ABG PH 7.478 (7.35-7.45); ABG TCO2 21.4 MMOL/L (23-27)
[2018-12-23 05:55] LABS: Basophils % 0.1 % (0.0-0.8); Eosinophils # 0.2 10*3/uL (0.0-0.87); Eosinophils % 1.2 % (0.00-10.9); Hematocrit 26.2 VOL% (42.0-52.0); Hemoglobin 8.5 GM/DL (14.0-18.0); Immature Granulocytes % 1.3 %; Immature Granulocytes Absolute 0.18 #; Lymphocytes % 14.7 % (21.2-54.2); Mean Corpuscular HGB Conc 32.4 GM/DL (32-36); Mean Corpuscular Volume 98.9 FL (87-102); Mean Platelet Volume 10.9 FL (9.6-12.0); Monocytes % 6.7 % (1.7-12.7); NRBC # 0.02 10*3/uL; Platelet Count 204 T/CUMM (130-400); Red Blood Count 2.65 MC/CUMM (3.8-5.5); Red Cell Distribution Width 13.4 % (9.3-17.3); White Blood Count 13.4 T/CUMM (4-12)
[2018-12-23 06:25] LABS: Alanine Aminotransferase 31 U/L (16-61); Albumin 2.8 G/DL (3.4-5.0); Alkaline Phosphatase 55 U/L (45-117); Aspartate Amino Transferase 32 U/L (0-37); Bilirubin,Indirect 0.5 MG/DL (0.0-1.0); Blood Urea Nitrogen 45 MG/DL (7-18); Calcium 7.8 MG/DL (8.5-10.1); Glucose 198 MG/DL (74-106); Osmolality,Calculated 298.3 MOS/KG (273-304); Total Protein 5.9 G/DL (6.4-8.3); Troponin I 0.387 NG/ML (0.00-0.045)
[2018-12-23] MEDS: ACETAMINOPHEN 325 MG TABLET PO PRN (06:45)
[2018-12-23] MEDS: POTASSIUM CHLORIDE 20 MEQ TABLET PO PRN ×2 (06:46→09:00)
[2018-12-23] MEDS: glyBURIDE 2.5 MG TABLET PO SCH ×2 (09:47→16:45)
[2018-12-23] MEDS: metFORMIN 500 MG TABLET PO SCH ×2 (09:48→16:45)
[2018-12-23] MEDS: ASPIRIN EC 81 MG TABLET PO SCH (09:48)
[2018-12-23] MEDS: PIOGLITAZONE 15 MG TABLET PO SCH (09:48)
[2018-12-23] MEDS: DOCUSATE SODIUM 100 MG CAPSULE PO SCH (09:48)
[2018-12-23] MEDS: INDAPAMIDE 2.5 MG TABLET PO SCH (09:49)
[2018-12-23] MEDS: GABAPENTIN 600 MG TABLET PO SCH (09:49)
[2018-12-23] MEDS: PANTOPRAZOLE 40 MG VIAL IV SCH (09:49)
[2018-12-23] MEDS: FERROUS SULFATE 325 MG TABLET PO SCH (09:49)
[2018-12-23] MEDS: CHLORHEXIDINE 0.12% ORAL RINSE 60 ML BOTTLE SWISH/SPIT SCH ×2 (09:49→22:01)
[2018-12-23] MEDS: NABUMETONE 500 MG TABLET PO SCH ×2 (09:50→22:01)
[2018-12-23] MEDS: ACYCLOVIR 200 MG CAPSULE PO SCH ×3 (09:50→22:01)
[2018-12-23] MEDS: methylPREDNISolone 4 MG TABLET PO SCH (13:40)
[2018-12-23] MEDS ORDERED: FUROSEMIDE 40 MG/4 ML VIAL IV ONE (17:00)
[2018-12-23] MEDS: CARBIDOPA/LEVODOPA 25-100 MG TABLET PO SCH (22:01)
[2018-12-23] MEDS: AMITRIPTYLINE 50 MG TABLET PO SCH (22:01)
[2018-12-23] MEDS: GABAPENTIN 300 MG CAPSULE PO SCH (22:01)
[2018-12-23] MEDS: SIMVASTATIN 20 MG TABLET PO SCH (22:01)
[2018-12-24] MEDS: INSULIN REGULAR 100 UNIT/ML SUBCUT SCH ×7 (00:20→23:29)
[2018-12-24] MEDS: ALBUTEROL/IPRATROPIUM 3 ML NEB RESP TX SCH ×5 (02:38→19:24)
[2018-12-24] MEDS: PROPOFOL 1,000 MG/100 ML BOTTLE IV SCH (03:44)
[2018-12-24 05:30] LABS: ABG Base Excess 2.6 MMOL/L (-2.5-2.5); ABG HCO3 26.8 MMOL/L (20-26); ABG Oxygen Saturation 98.5 % (95-100); ABG PCO2 26.3 MM HG (35-48); ABG PH 7.571 (7.35-7.45); ABG TCO2 22.2 MMOL/L (23-27)
[2018-12-24 09:32] LABS: ABG Base Excess 1.3 MMOL/L (-2.5-2.5); ABG HCO3 25.6 MMOL/L (20-26); ABG PCO2 32.7 MM HG (35-48); ABG PH 7.482 (7.35-7.45); ABG TCO2 22.5 MMOL/L (23-27)
[2018-12-24] MEDS: metFORMIN 500 MG TABLET PO SCH ×2 (09:38→16:08)
[2018-12-24] MEDS: glyBURIDE 2.5 MG TABLET PO SCH ×2 (09:38→16:08)
[2018-12-24] MEDS: NABUMETONE 500 MG TABLET PO SCH ×2 (09:38→21:41)
[2018-12-24] MEDS: FERROUS SULFATE 325 MG TABLET PO SCH (09:38)
[2018-12-24] MEDS: PIOGLITAZONE 15 MG TABLET PO SCH (09:38)
[2018-12-24] MEDS: GABAPENTIN 600 MG TABLET PO SCH (09:38)
[2018-12-24] MEDS: ASPIRIN EC 81 MG TABLET PO SCH (09:38)
[2018-12-24 09:39] LABS: Basophils % 0.2 % (0.0-0.8); Eosinophils # 0.3 10*3/uL (0.0-0.87); Eosinophils % 2.9 % (0.00-10.9); Hematocrit 25.9 VOL% (42.0-52.0); Hemoglobin 8.4 GM/DL (14.0-18.0); Immature Granulocytes % 1.3 %; Immature Granulocytes Absolute 0.16 #; Lymphocytes # 1.9 10*3/uL (1.4-4.0); Lymphocytes % 16.2 % (21.2-54.2); Mean Corpuscular HGB Conc 32.4 GM/DL (32-36); Mean Corpuscular Volume 98.9 FL (87-102); Mean Platelet Volume 10.7 FL (9.6-12.0); Monocytes % 7.7 % (1.7-12.7); Neutrophils % 71.7 % (38.7-73.9); Platelet Count 200 T/CUMM (130-400); Red Blood Count 2.62 MC/CUMM (3.8-5.5); Red Cell Distribution Width 13.1 % (9.3-17.3); White Blood Count 11.9 T/CUMM (4-12)
[2018-12-24] MEDS: INDAPAMIDE 2.5 MG TABLET PO SCH (09:39)
[2018-12-24] MEDS: ACYCLOVIR 200 MG CAPSULE PO SCH ×3 (09:39→21:42)
[2018-12-24] MEDS: DOCUSATE SODIUM 100 MG CAPSULE PO SCH (09:39)
[2018-12-24] MEDS: PANTOPRAZOLE 40 MG VIAL IV SCH (09:39)
[2018-12-24] MEDS: CHLORHEXIDINE 0.12% ORAL RINSE 60 ML BOTTLE SWISH/SPIT SCH ×2 (09:43→21:42)
[2018-12-24 09:59] LABS: Calcium 7.8 MG/DL (8.5-10.1); Osmolality,Calculated 296.1 MOS/KG (273-304)
[2018-12-24] MEDS: POTASSIUM CHLORIDE 20 MEQ TABLET PO PRN ×2 (13:10→16:09)
[2018-12-24] MEDS: oxyCODONE/ACETAMINOPHEN 5-325 MG TABLET PO PRN ×2 (13:10→21:43)
[2018-12-24] MEDS: methylPREDNISolone SOD SUC 40 MG/1 ML VIAL IV SCH ×2 (13:13→17:25)
[2018-12-24] MEDS: SODIUM CHLORIDE 0.45% 1,000 ML IV SCH (19:07)
[2018-12-24] MEDS: AMITRIPTYLINE 50 MG TABLET PO SCH (21:41)
[2018-12-24] MEDS: SIMVASTATIN 20 MG TABLET PO SCH (21:41)
[2018-12-24] MEDS: CARBIDOPA/LEVODOPA 25-100 MG TABLET PO SCH (21:41)
[2018-12-24] MEDS: GABAPENTIN 300 MG CAPSULE PO SCH (21:42)
[2018-12-25] MEDS: ALBUTEROL/IPRATROPIUM 3 ML NEB RESP TX SCH ×6 (00:11→20:10)
[2018-12-25] MEDS: methylPREDNISolone SOD SUC 40 MG/1 ML VIAL IV SCH ×4 (00:47→18:35)
[2018-12-25] MEDS: INSULIN REGULAR 100 UNIT/ML SUBCUT SCH ×5 (04:48→20:57)
[2018-12-25 05:06] LABS: Basophils % 0.2 % (0.0-0.8); Eosinophils % 0.1 % (0.00-10.9); Hematocrit 26.5 VOL% (42.0-52.0); Hemoglobin 8.5 GM/DL (14.0-18.0); Immature Granulocytes Absolute 0.32 #; Lymphocytes % 9.3 % (21.2-54.2); Mean Corpuscular HGB Conc 32.1 GM/DL (32-36); Mean Corpuscular Volume 98.1 FL (87-102); Mean Platelet Volume 10.3 FL (9.6-12.0); Monocytes % 4.1 % (1.7-12.7); NRBC # 0.02 10*3/uL; Neutrophils % 83.3 % (38.7-73.9); Platelet Count 231 T/CUMM (130-400); Red Cell Distribution Width 12.7 % (9.3-17.3); White Blood Count 10.6 T/CUMM (4-12)
[2018-12-25 05:31] LABS: Alanine Aminotransferase 38 U/L (16-61); Albumin 2.3 G/DL (3.4-5.0); Alkaline Phosphatase 86 U/L (45-117); Aspartate Amino Transferase 28 U/L (0-37); Bilirubin,Indirect 0.4 MG/DL (0.0-1.0); Blood Urea Nitrogen 36 MG/DL (7-18); Glucose 187 MG/DL (74-106); Osmolality,Calculated 291.4 MOS/KG (273-304); Total Protein 5.9 G/DL (6.4-8.3)
[2018-12-25 05:40] LABS: Troponin I 0.111 NG/ML (0.00-0.045)
[2018-12-25] MEDS: oxyCODONE/ACETAMINOPHEN 5-325 MG TABLET PO PRN (06:38)
[2018-12-25] MEDS: ASPIRIN EC 81 MG TABLET PO SCH (08:35)
[2018-12-25] MEDS: LOSARTAN 25 MG TABLET PO SCH ×2 (08:35→20:56)
[2018-12-25] MEDS: glyBURIDE 2.5 MG TABLET PO SCH ×2 (08:35→16:57)
[2018-12-25] MEDS: CARVEDILOL 3.125 MG TABLET PO SCH ×2 (08:35→20:56)
[2018-12-25] MEDS: GABAPENTIN 600 MG TABLET PO SCH (08:35)
[2018-12-25] MEDS: NABUMETONE 500 MG TABLET PO SCH ×2 (08:36→20:57)
[2018-12-25] MEDS: FERROUS SULFATE 325 MG TABLET PO SCH (08:36)
[2018-12-25] MEDS: INDAPAMIDE 2.5 MG TABLET PO SCH (08:36)
[2018-12-25] MEDS: metFORMIN 500 MG TABLET PO SCH ×2 (08:36→16:58)
[2018-12-25] MEDS: PIOGLITAZONE 15 MG TABLET PO SCH (08:36)
[2018-12-25] MEDS: DOCUSATE SODIUM 100 MG CAPSULE PO SCH (08:36)
[2018-12-25] MEDS: CHLORHEXIDINE 0.12% ORAL RINSE 60 ML BOTTLE SWISH/SPIT SCH ×2 (08:42→20:57)
[2018-12-25] MEDS: PANTOPRAZOLE 40 MG VIAL IV SCH (08:42)
[2018-12-25] MEDS: ACYCLOVIR 200 MG CAPSULE PO SCH ×3 (09:56→20:57)
[2018-12-25] MEDS ORDERED: DEXTROSE 50% 25 GM/50 ML SYRINGE IV PRN ×2 (13:46→14:24)
[2018-12-25] MEDS ORDERED: GLUCAGON 1 MG VIAL IM PRN ×2 (14:24)
[2018-12-25] MEDS ORDERED: ALUMINUM/MAGNES/SIMETH MAX STR 30 ML UDCUP PO PRN (14:24)
[2018-12-25] MEDS ORDERED: ZALEPLON 5 MG CAPSULE PO PRN (14:24)
[2018-12-25] MEDS ORDERED: MAGNESIUM SULF RIDER 4 GM in PREMIX 1 EACH IV PRN (14:24)
[2018-12-25] MEDS ORDERED: MAGNESIUM SULF RIDER 2 GM in PREMIX 1 EACH IV PRN (14:24)
[2018-12-25] MEDS ORDERED: SODIUM CHLOR 0.45% KCL 20 MEQ 20 MEQ/1,000 ML BAG IV SCH (14:24)
[2018-12-25] MEDS ORDERED: ONDANSETRON 4 MG/2 ML VIAL IV PRN (14:24)
[2018-12-25] MEDS ORDERED: MAGNESIUM HYDROXIDE SUSP 30 ML UDCUP PO PRN (14:24)
[2018-12-25] MEDS ORDERED: DEXTROSE 50% 25 GM/50 ML VIAL IV PRN (14:24)
[2018-12-25] MEDS ORDERED: ACETAMINOPHEN 325 MG TABLET PO PRN (14:24)
[2018-12-25] MEDS: SODIUM CHLORIDE 0.45% 1,000 ML IV SCH (14:28)
[2018-12-25 14:46] LABS: HIV Antigen/Antibody Result Nonreactive (Nonreactive); Hepatitis B Surface Ag Quant < 0.10 Index; Hepatitis B Surface Ag Result Negative (Negative); Hepatitis C Virus Ab Quant 0.05 Index; Hepatitis C Virus Ab Result Negative (Negative)
[2018-12-25] MEDS: CARBIDOPA/LEVODOPA 25-100 MG TABLET PO SCH (20:57)
[2018-12-25] MEDS: AMITRIPTYLINE 50 MG TABLET PO SCH (20:57)
[2018-12-25] MEDS: GABAPENTIN 300 MG CAPSULE PO SCH (20:57)
[2018-12-25] MEDS: SIMVASTATIN 20 MG TABLET PO SCH (20:57)
[2018-12-26] MEDS: ALBUTEROL/IPRATROPIUM 3 ML NEB RESP TX SCH ×7 (00:23→23:00)
[2018-12-26] MEDS: methylPREDNISolone SOD SUC 40 MG/1 ML VIAL IV SCH ×4 (00:40→17:05)
[2018-12-26 04:46] LABS: Basophils % 0.1 % (0.0-0.8); Hematocrit 28.4 VOL% (42.0-52.0); Hemoglobin 9.2 GM/DL (14.0-18.0); Immature Granulocytes Absolute 0.75 #; Lymphocytes # 1.6 10*3/uL (1.4-4.0); Lymphocytes % 10.5 % (21.2-54.2); Mean Corpuscular HGB Conc 32.4 GM/DL (32-36); Mean Platelet Volume 10.6 FL (9.6-12.0); Monocytes % 6.9 % (1.7-12.7); NRBC # 0.05 10*3/uL; Neutrophils % 77.5 % (38.7-73.9); Platelet Count 345 T/CUMM (130-400); Red Blood Count 2.87 MC/CUMM (3.8-5.5); Red Cell Distribution Width 13.1 % (9.3-17.3); White Blood Count 15.1 T/CUMM (4-12)
[2018-12-26 05:08] LABS: Alanine Aminotransferase 69 U/L (16-61); Albumin 2.4 G/DL (3.4-5.0); Alkaline Phosphatase 132 U/L (45-117); Aspartate Amino Transferase 66 U/L (0-37); Bilirubin,Indirect 0.4 MG/DL (0.0-1.0); Blood Urea Nitrogen 50 MG/DL (7-18); Calcium 7.8 MG/DL (8.5-10.1); Glucose 290 MG/DL (74-106); Osmolality,Calculated 298.7 MOS/KG (273-304); Total Protein 5.8 G/DL (6.4-8.3)
[2018-12-26 05:10] LABS: Troponin I 0.099 NG/ML (0.00-0.045)
[2018-12-26 05:27] LABS: Band Neutrophils 5 % (0-10); Lymphocytes 8 % (20-55); Myelocytes 2 %; Segmented Neutrophils 83 % (50-85)
[2018-12-26 05:28] LABS: Platelet Estimate Adequate; Total Cells Counted 100
[2018-12-26] MEDS ORDERED: FUROSEMIDE 40 MG/4 ML VIAL IV ONE (06:00)
[2018-12-26] MEDS: FERROUS SULFATE 325 MG TABLET PO SCH (09:06)
[2018-12-26] MEDS: NABUMETONE 500 MG TABLET PO SCH ×2 (09:06→23:23)
[2018-12-26] MEDS: DOCUSATE SODIUM 100 MG CAPSULE PO SCH (09:06)
[2018-12-26] MEDS: GABAPENTIN 600 MG TABLET PO SCH (09:07)
[2018-12-26] MEDS: INDAPAMIDE 2.5 MG TABLET PO SCH (09:07)
[2018-12-26] MEDS: glyBURIDE 2.5 MG TABLET PO SCH ×2 (09:07→17:05)
[2018-12-26] MEDS: ASPIRIN EC 81 MG TABLET PO SCH (09:07)
[2018-12-26] MEDS: metFORMIN 500 MG TABLET PO SCH ×2 (09:07→17:05)
[2018-12-26] MEDS: PIOGLITAZONE 15 MG TABLET PO SCH (09:07)
[2018-12-26] MEDS: ACYCLOVIR 200 MG CAPSULE PO SCH ×3 (09:07→23:18)
[2018-12-26] MEDS: CARVEDILOL 3.125 MG TABLET PO SCH ×2 (09:07→23:18)
[2018-12-26] MEDS: LOSARTAN 25 MG TABLET PO SCH ×2 (09:07→23:18)
[2018-12-26] MEDS: PANTOPRAZOLE 40 MG TABLET PO SCH (09:07)
[2018-12-26] MEDS: CHLORHEXIDINE 0.12% ORAL RINSE 60 ML BOTTLE SWISH/SPIT SCH ×2 (09:08→23:28)
[2018-12-26] MEDS: INSULIN REGULAR 100 UNIT/ML SUBCUT SCH ×4 (09:08→23:10)
[2018-12-26] MEDS ORDERED: ePHEDrine 50 MG/ML AMP ONE (11:15)
[2018-12-26] MEDS: oxyCODONE/ACETAMINOPHEN 5-325 MG TABLET PO PRN ×2 (14:04→20:30)
[2018-12-26] MEDS: SIMVASTATIN 20 MG TABLET PO SCH (23:17)
[2018-12-26] MEDS: GABAPENTIN 300 MG CAPSULE PO SCH (23:17)
[2018-12-26] MEDS: AMITRIPTYLINE 50 MG TABLET PO SCH (23:17)
[2018-12-26] MEDS: CARBIDOPA/LEVODOPA 25-100 MG TABLET PO SCH (23:18)
[2018-12-27] MEDS: methylPREDNISolone SOD SUC 40 MG/1 ML VIAL IV SCH ×2 (01:02→14:03)
[2018-12-27] MEDS: ALBUTEROL/IPRATROPIUM 3 ML NEB RESP TX SCH ×5 (02:10→19:11)
[2018-12-27 05:34] LABS: Basophils # 0.1 10*3/uL (0.0-0.2); Basophils % 0.3 % (0.0-0.8); Eosinophils % 0.2 % (0.00-10.9); Hematocrit 27.8 VOL% (42.0-52.0); Hemoglobin 8.8 GM/DL (14.0-18.0); Immature Granulocytes % 6.6 %; Immature Granulocytes Absolute 1.02 #; Lymphocytes # 2.3 10*3/uL (1.4-4.0); Lymphocytes % 15.2 % (21.2-54.2); Mean Corpuscular HGB Conc 31.7 GM/DL (32-36); Mean Platelet Volume 10.2 FL (9.6-12.0); Monocytes % 8.3 % (1.7-12.7); NRBC # 0.02 10*3/uL; Neutrophils % 69.4 % (38.7-73.9); Platelet Count 377 T/CUMM (130-400); Red Blood Count 2.78 MC/CUMM (3.8-5.5); Red Cell Distribution Width 13.1 % (9.3-17.3); White Blood Count 15.4 T/CUMM (4-12)
[2018-12-27 06:15] LABS: Alanine Aminotransferase 31 U/L (16-61); Albumin 2.3 G/DL (3.4-5.0); Alkaline Phosphatase 118 U/L (45-117); Aspartate Amino Transferase 38 U/L (0-37); Bilirubin,Indirect 0.3 MG/DL (0.0-1.0); Blood Urea Nitrogen 53 MG/DL (7-18); Calcium 7.8 MG/DL (8.5-10.1); Glucose 144 MG/DL (74-106); Osmolality,Calculated 291.7 MOS/KG (273-304); Total Protein 5.7 G/DL (6.4-8.3)
[2018-12-27 06:17] LABS: Troponin I 0.079 NG/ML (0.00-0.045)
[2018-12-27 06:26] LABS: Band Neutrophils 3 % (0-10); Lymphocytes 11 % (20-55); Metamyelocytes 1 %; Myelocytes 4 %; Platelet Estimate Adequate; Segmented Neutrophils 80 % (50-85); Total Cells Counted 100
[2018-12-27] MEDS ORDERED: FUROSEMIDE 40 MG/4 ML VIAL IV ONE (07:49)
[2018-12-27] MEDS: INSULIN REGULAR 100 UNIT/ML SUBCUT SCH ×4 (08:56→22:06)
[2018-12-27] MEDS: glyBURIDE 2.5 MG TABLET PO SCH ×2 (08:57→16:15)
[2018-12-27] MEDS: FERROUS SULFATE 325 MG TABLET PO SCH (08:57)
[2018-12-27] MEDS: DOCUSATE SODIUM 100 MG CAPSULE PO SCH (08:57)
[2018-12-27] MEDS: GABAPENTIN 600 MG TABLET PO SCH (08:58)
[2018-12-27] MEDS: ACYCLOVIR 200 MG CAPSULE PO SCH ×3 (08:58→22:12)
[2018-12-27] MEDS: metFORMIN 500 MG TABLET PO SCH ×2 (08:58→16:15)
[2018-12-27] MEDS: ASPIRIN EC 81 MG TABLET PO SCH (08:58)
[2018-12-27] MEDS: NABUMETONE 500 MG TABLET PO SCH ×2 (08:58→22:09)
[2018-12-27] MEDS: CARVEDILOL 3.125 MG TABLET PO SCH ×2 (08:59→22:10)
[2018-12-27] MEDS: PANTOPRAZOLE 40 MG TABLET PO SCH (08:59)
[2018-12-27] MEDS: INDAPAMIDE 2.5 MG TABLET PO SCH (08:59)
[2018-12-27] MEDS: LOSARTAN 25 MG TABLET PO SCH ×2 (08:59→22:12)
[2018-12-27] MEDS: PIOGLITAZONE 15 MG TABLET PO SCH (09:21)
[2018-12-27] MEDS: CHLORHEXIDINE 0.12% ORAL RINSE 60 ML BOTTLE SWISH/SPIT SCH ×2 (09:21→22:23)
[2018-12-27] MEDS: oxyCODONE/ACETAMINOPHEN 5-325 MG TABLET PO PRN (20:19)
[2018-12-27] MEDS: AMITRIPTYLINE 50 MG TABLET PO SCH (22:10)
[2018-12-27] MEDS: CARBIDOPA/LEVODOPA 25-100 MG TABLET PO SCH (22:11)
[2018-12-27] MEDS: SIMVASTATIN 20 MG TABLET PO SCH (22:12)
[2018-12-27] MEDS: GABAPENTIN 300 MG CAPSULE PO SCH (22:14)
[2018-12-28] MEDS: ALBUTEROL/IPRATROPIUM 3 ML NEB RESP TX SCH ×6 (00:27→19:38)
[2018-12-28] MEDS: methylPREDNISolone SOD SUC 40 MG/1 ML VIAL IV SCH ×2 (02:05→13:25)
[2018-12-28] MEDS: INSULIN REGULAR 100 UNIT/ML SUBCUT SCH ×4 (09:45→21:40)
[2018-12-28] MEDS: metFORMIN 500 MG TABLET PO SCH ×2 (09:48→18:15)
[2018-12-28] MEDS: NABUMETONE 500 MG TABLET PO SCH ×2 (09:48→21:37)
[2018-12-28] MEDS: PIOGLITAZONE 15 MG TABLET PO SCH (09:48)
[2018-12-28] MEDS: glyBURIDE 2.5 MG TABLET PO SCH ×2 (09:48→16:35)
[2018-12-28] MEDS: PANTOPRAZOLE 40 MG TABLET PO SCH (09:49)
[2018-12-28] MEDS: FERROUS SULFATE 325 MG TABLET PO SCH (09:49)
[2018-12-28] MEDS: DOCUSATE SODIUM 100 MG CAPSULE PO SCH (09:49)
[2018-12-28] MEDS: CARVEDILOL 3.125 MG TABLET PO SCH ×2 (09:49→21:39)
[2018-12-28] MEDS: INDAPAMIDE 2.5 MG TABLET PO SCH (09:49)
[2018-12-28] MEDS: GABAPENTIN 600 MG TABLET PO SCH (09:49)
[2018-12-28] MEDS: ASPIRIN EC 81 MG TABLET PO SCH (09:49)
[2018-12-28] MEDS: LOSARTAN 25 MG TABLET PO SCH ×2 (09:50→21:39)
[2018-12-28] MEDS: CHLORHEXIDINE 0.12% ORAL RINSE 60 ML BOTTLE SWISH/SPIT SCH ×2 (09:54→21:35)
[2018-12-28] MEDS: ACYCLOVIR 200 MG CAPSULE PO SCH ×3 (09:57→21:36)
[2018-12-28] MEDS: GABAPENTIN 300 MG CAPSULE PO SCH (21:36)
[2018-12-28] MEDS: CARBIDOPA/LEVODOPA 25-100 MG TABLET PO SCH (21:38)
[2018-12-28] MEDS: SIMVASTATIN 20 MG TABLET PO SCH (21:39)
[2018-12-28] MEDS: AMITRIPTYLINE 50 MG TABLET PO SCH (21:39)
[2018-12-28] MEDS: oxyCODONE/ACETAMINOPHEN 5-325 MG TABLET PO PRN (22:36)
[2018-12-29] MEDS: ALBUTEROL/IPRATROPIUM 3 ML NEB RESP TX SCH ×7 (00:12→23:35)
[2018-12-29] MEDS: methylPREDNISolone SOD SUC 40 MG/1 ML VIAL IV SCH ×2 (02:05→13:15)
[2018-12-29 05:09] LABS: Basophils % 0.4 % (0.0-0.8); Eosinophils # 0.1 10*3/uL (0.0-0.87); Eosinophils % 1.4 % (0.00-10.9); Hematocrit 42.2 VOL% (42.0-52.0); Hemoglobin 13.6 GM/DL (14.0-18.0); Immature Granulocytes % 6.3 %; Immature Granulocytes Absolute 0.53 #; Lymphocytes # 1.5 10*3/uL (1.4-4.0); Lymphocytes % 17.5 % (21.2-54.2); Mean Corpuscular HGB Conc 32.2 GM/DL (32-36); Mean Corpuscular Volume 98.6 FL (87-102); Mean Platelet Volume 10.6 FL (9.6-12.0); Monocytes % 6.6 % (1.7-12.7); NRBC # 0.03 10*3/uL; Neutrophils % 67.8 % (38.7-73.9); Platelet Count 275 T/CUMM (130-400); Red Blood Count 4.28 MC/CUMM (3.8-5.5); Red Cell Distribution Width 13.2 % (9.3-17.3); White Blood Count 8.4 T/CUMM (4-12)
[2018-12-29 05:38] LABS: Lymphocytes 13 % (20-55); Metamyelocytes 1 %; Platelet Estimate Normal; Polychromasia Few; Segmented Neutrophils 81 % (50-85); Total Cells Counted 100
[2018-12-29 05:42] LABS: Alanine Aminotransferase 23 U/L (16-61); Albumin 2.5 G/DL (3.4-5.0); Alkaline Phosphatase 111 U/L (45-117); Aspartate Amino Transferase 17 U/L (0-37); Bilirubin,Direct < 0.100 MG/DL (0.0-0.20); Bilirubin,Indirect 0.3 MG/DL (0.0-1.0); Blood Urea Nitrogen 51 MG/DL (7-18); Calcium 7.6 MG/DL (8.5-10.1); Glucose 146 MG/DL (74-106); Osmolality,Calculated 297.3 MOS/KG (273-304); Total Protein 4.9 G/DL (6.4-8.3)
[2018-12-29 05:45] LABS: Troponin I 0.057 NG/ML (0.00-0.045)
[2018-12-29] MEDS: POTASSIUM CHLORIDE 20 MEQ TABLET PO PRN ×3 (06:15→10:57)
[2018-12-29] MEDS: oxyCODONE/ACETAMINOPHEN 5-325 MG TABLET PO PRN (07:35)
[2018-12-29] MEDS: glyBURIDE 2.5 MG TABLET PO SCH ×2 (07:35→16:52)
[2018-12-29] MEDS: metFORMIN 500 MG TABLET PO SCH ×2 (07:36→18:08)
[2018-12-29] MEDS ORDERED: HYDROmorphone 2 MG/1 ML VIAL IV ONE (07:41)
[2018-12-29] MEDS ORDERED: LACTULOSE 20 GM/30 ML UDCUP PO PRN (09:16)
[2018-12-29] MEDS ORDERED: HYDROmorphone 2 MG/1 ML VIAL IV PRN (09:18)
[2018-12-29] MEDS: PANTOPRAZOLE 40 MG TABLET PO SCH (09:19)
[2018-12-29] MEDS: PIOGLITAZONE 15 MG TABLET PO SCH (09:19)
[2018-12-29] MEDS: NABUMETONE 500 MG TABLET PO SCH ×2 (09:19→21:01)
[2018-12-29] MEDS: ACYCLOVIR 200 MG CAPSULE PO SCH ×3 (09:19→21:00)
[2018-12-29] MEDS: ASPIRIN EC 81 MG TABLET PO SCH (09:20)
[2018-12-29] MEDS: LOSARTAN 25 MG TABLET PO SCH ×2 (09:20→20:58)
[2018-12-29] MEDS: DOCUSATE SODIUM 100 MG CAPSULE PO SCH (09:20)
[2018-12-29] MEDS: FUROSEMIDE 40 MG TABLET PO SCH (09:20)
[2018-12-29] MEDS: GABAPENTIN 600 MG TABLET PO SCH (09:20)
[2018-12-29] MEDS: INSULIN REGULAR 100 UNIT/ML SUBCUT SCH ×4 (09:21→20:57)
[2018-12-29] MEDS: INDAPAMIDE 2.5 MG TABLET PO SCH (09:21)
[2018-12-29] MEDS: CARVEDILOL 6.25 MG TABLET PO SCH ×2 (09:21→21:02)
[2018-12-29] MEDS: FERROUS SULFATE 325 MG TABLET PO SCH (09:21)
[2018-12-29] MEDS: CHLORHEXIDINE 0.12% ORAL RINSE 60 ML BOTTLE SWISH/SPIT SCH ×2 (09:21→20:58)
[2018-12-29] MEDS: GABAPENTIN 300 MG CAPSULE PO SCH (20:59)
[2018-12-29] MEDS: SIMVASTATIN 20 MG TABLET PO SCH (21:02)
[2018-12-29] MEDS: CARBIDOPA/LEVODOPA 25-100 MG TABLET PO SCH (21:03)
[2018-12-29] MEDS: AMITRIPTYLINE 50 MG TABLET PO SCH (21:03)
[2018-12-30] MEDS: methylPREDNISolone SOD SUC 40 MG/1 ML VIAL IV SCH (01:23)
[2018-12-30] MEDS: ALBUTEROL/IPRATROPIUM 3 ML NEB RESP TX SCH ×5 (04:05→19:02)
[2018-12-30 05:29] LABS: Alanine Aminotransferase 47 U/L (16-61); Albumin 2.6 G/DL (3.4-5.0); Alkaline Phosphatase 107 U/L (45-117); Aspartate Amino Transferase 18 U/L (0-37); Bilirubin,Direct < 0.100 MG/DL (0.0-0.20); Bilirubin,Indirect 0.4 MG/DL (0.0-1.0); Blood Urea Nitrogen 44 MG/DL (7-18); Calcium 8.1 MG/DL (8.5-10.1); Glucose 139 MG/DL (74-106); Osmolality,Calculated 287.7 MOS/KG (273-304); Total Protein 5.5 G/DL (6.4-8.3); Troponin I 0.043 NG/ML (0.00-0.045)
[2018-12-30 07:14] LABS: Basophils % 0.1 % (0.0-0.8); Eosinophils # 0.2 10*3/uL (0.0-0.87); Eosinophils % 1.2 % (0.00-10.9); Hematocrit 28.4 VOL% (42.0-52.0); Immature Granulocytes % 6.6 %; Lymphocytes # 1.9 10*3/uL (1.4-4.0); Lymphocytes % 12.3 % (21.2-54.2); Mean Corpuscular HGB Conc 32.7 GM/DL (32-36); Mean Corpuscular Volume 97.9 FL (87-102); Monocytes % 4.9 % (1.7-12.7); NRBC # 0.02 10*3/uL; Neutrophils % 74.9 % (38.7-73.9); Red Cell Distribution Width 13.5 % (9.3-17.3)
[2018-12-30 07:33] LABS: White Blood Count 15.2 T/CUMM (4-12)
[2018-12-30 07:34] LABS: Hemoglobin 9.3 GM/DL (14.0-18.0); Platelet Count 441 T/CUMM (130-400)
[2018-12-30 08:23] LABS: Band Neutrophils 2 % (0-10); Eosinophils 2 % (0-10); Lymphocytes 11 % (20-55); Macrocytosis Slight; Metamyelocytes 1 %; Nucleated Red Blood Cells 1 (0-5); Platelet Estimate Increased; Polychromasia Slight; Segmented Neutrophils 82 % (50-85); Total Cells Counted 100
[2018-12-30] MEDS: glyBURIDE 2.5 MG TABLET PO SCH ×2 (08:33→16:30)
[2018-12-30] MEDS: GABAPENTIN 600 MG TABLET PO SCH (08:33)
[2018-12-30] MEDS: PIOGLITAZONE 15 MG TABLET PO SCH (08:34)
[2018-12-30] MEDS: DOCUSATE SODIUM 100 MG CAPSULE PO SCH (08:34)
[2018-12-30] MEDS: CARVEDILOL 6.25 MG TABLET PO SCH ×2 (08:34→20:24)
[2018-12-30] MEDS: ACYCLOVIR 200 MG CAPSULE PO SCH ×3 (08:34→20:23)
[2018-12-30] MEDS: FUROSEMIDE 40 MG TABLET PO SCH (08:34)
[2018-12-30] MEDS: ASPIRIN EC 81 MG TABLET PO SCH (08:35)
[2018-12-30] MEDS: predniSONE 5 MG TABLET PO SCH ×2 (08:35→20:25)
[2018-12-30] MEDS: LOSARTAN 25 MG TABLET PO SCH ×2 (08:35→20:25)
[2018-12-30] MEDS: INSULIN REGULAR 100 UNIT/ML SUBCUT SCH ×4 (08:35→20:22)
[2018-12-30] MEDS: PANTOPRAZOLE 40 MG TABLET PO SCH (08:35)
[2018-12-30] MEDS: FERROUS SULFATE 325 MG TABLET PO SCH (08:35)
[2018-12-30] MEDS: INDAPAMIDE 2.5 MG TABLET PO SCH (08:35)
[2018-12-30] MEDS: metFORMIN 500 MG TABLET PO SCH ×2 (08:35→16:30)
[2018-12-30] MEDS: CHLORHEXIDINE 0.12% ORAL RINSE 60 ML BOTTLE SWISH/SPIT SCH ×2 (08:40→22:35)
[2018-12-30] MEDS: NABUMETONE 500 MG TABLET PO SCH ×2 (08:41→20:22)
[2018-12-30] MEDS: oxyCODONE/ACETAMINOPHEN 5-325 MG TABLET PO PRN ×2 (10:27→14:36)
[2018-12-30] MEDS: GABAPENTIN 300 MG CAPSULE PO SCH (20:23)
[2018-12-30] MEDS: CARBIDOPA/LEVODOPA 25-100 MG TABLET PO SCH (20:24)
[2018-12-30] MEDS: SIMVASTATIN 20 MG TABLET PO SCH (20:25)
[2018-12-30] MEDS: AMITRIPTYLINE 50 MG TABLET PO SCH (22:34)
[2018-12-31] MEDS: ALBUTEROL/IPRATROPIUM 3 ML NEB RESP TX SCH ×8 (00:57→23:02)
[2018-12-31] MEDS: INSULIN REGULAR 100 UNIT/ML SUBCUT SCH ×4 (09:21→21:03)
[2018-12-31] MEDS: glyBURIDE 2.5 MG TABLET PO SCH ×2 (09:22→17:04)
[2018-12-31] MEDS: predniSONE 5 MG TABLET PO SCH ×2 (09:22→20:53)
[2018-12-31] MEDS: ACYCLOVIR 200 MG CAPSULE PO SCH ×3 (09:22→20:53)
[2018-12-31] MEDS: PIOGLITAZONE 15 MG TABLET PO SCH (09:23)
[2018-12-31] MEDS: GABAPENTIN 600 MG TABLET PO SCH (09:23)
[2018-12-31] MEDS: metFORMIN 500 MG TABLET PO SCH ×2 (09:23→17:04)
[2018-12-31] MEDS: DOCUSATE SODIUM 100 MG CAPSULE PO SCH (09:23)
[2018-12-31] MEDS: FUROSEMIDE 40 MG TABLET PO SCH (09:23)
[2018-12-31] MEDS: LOSARTAN 25 MG TABLET PO SCH ×2 (09:24→20:52)
[2018-12-31] MEDS: ASPIRIN EC 81 MG TABLET PO SCH (09:24)
[2018-12-31] MEDS: CARVEDILOL 6.25 MG TABLET PO SCH ×2 (09:24→20:52)
[2018-12-31] MEDS: NABUMETONE 500 MG TABLET PO SCH ×2 (09:24→20:53)
[2018-12-31] MEDS: INDAPAMIDE 2.5 MG TABLET PO SCH (09:25)
[2018-12-31] MEDS: CHLORHEXIDINE 0.12% ORAL RINSE 60 ML BOTTLE SWISH/SPIT SCH ×2 (09:25→20:53)
[2018-12-31] MEDS: PANTOPRAZOLE 40 MG TABLET PO SCH (09:25)
[2018-12-31] MEDS: FERROUS SULFATE 325 MG TABLET PO SCH (09:26)
[2018-12-31] MEDS: oxyCODONE/ACETAMINOPHEN 5-325 MG TABLET PO PRN (17:14)
[2018-12-31] MEDS: AMITRIPTYLINE 50 MG TABLET PO SCH (20:52)
[2018-12-31] MEDS: GABAPENTIN 300 MG CAPSULE PO SCH (20:53)
[2018-12-31] MEDS: SIMVASTATIN 20 MG TABLET PO SCH (20:53)
[2018-12-31] MEDS: CARBIDOPA/LEVODOPA 25-100 MG TABLET PO SCH (20:53)
[2019-01-01] MEDS: ALBUTEROL/IPRATROPIUM 3 ML NEB RESP TX SCH ×5 (03:17→19:19)
[2019-01-01 05:51] LABS: Calcium 8.3 MG/DL (8.5-10.1); Osmolality,Calculated 283.7 MOS/KG (273-304)
[2019-01-01] MEDS: INSULIN REGULAR 100 UNIT/ML SUBCUT SCH (09:04)
[2019-01-01] MEDS: INDAPAMIDE 2.5 MG TABLET PO SCH (09:50)
[2019-01-01] MEDS: metFORMIN 500 MG TABLET PO SCH ×2 (09:51→15:58)
[2019-01-01] MEDS: PIOGLITAZONE 15 MG TABLET PO SCH (09:51)
[2019-01-01] MEDS: GABAPENTIN 600 MG TABLET PO SCH (09:51)
[2019-01-01] MEDS: LOSARTAN 25 MG TABLET PO SCH ×2 (09:51→22:37)
[2019-01-01] MEDS: NABUMETONE 500 MG TABLET PO SCH ×2 (09:51→22:38)
[2019-01-01] MEDS: glyBURIDE 2.5 MG TABLET PO SCH ×2 (09:51→15:58)
[2019-01-01] MEDS: FERROUS SULFATE 325 MG TABLET PO SCH (09:52)
[2019-01-01] MEDS: CHLORHEXIDINE 0.12% ORAL RINSE 60 ML BOTTLE SWISH/SPIT SCH ×2 (09:52→22:45)
[2019-01-01] MEDS: predniSONE 5 MG TABLET PO SCH ×2 (09:52→22:33)
[2019-01-01] MEDS: ASPIRIN EC 81 MG TABLET PO SCH (09:52)
[2019-01-01] MEDS: CARVEDILOL 6.25 MG TABLET PO SCH ×2 (09:52→22:34)
[2019-01-01] MEDS: PANTOPRAZOLE 40 MG TABLET PO SCH (09:52)
[2019-01-01] MEDS: DOCUSATE SODIUM 100 MG CAPSULE PO SCH (09:52)
[2019-01-01] MEDS: ACYCLOVIR 200 MG CAPSULE PO SCH ×3 (09:52→22:44)
[2019-01-01] MEDS: FUROSEMIDE 40 MG TABLET PO SCH (09:52)
[2019-01-01] MEDS ORDERED: FUROSEMIDE 40 MG/4 ML VIAL IV ONE (11:33)
[2019-01-01] MEDS: POLYETHYLENE GLYCOL POWDER 17 GM PACK PO SCH (11:35)
[2019-01-01] MEDS: AMITRIPTYLINE 50 MG TABLET PO SCH (22:34)
[2019-01-01] MEDS: CARBIDOPA/LEVODOPA 25-100 MG TABLET PO SCH (22:34)
[2019-01-01] MEDS: SIMVASTATIN 20 MG TABLET PO SCH (22:34)
[2019-01-01] MEDS: GABAPENTIN 300 MG CAPSULE PO SCH (22:35)
[2019-01-01] MEDS: oxyCODONE/ACETAMINOPHEN 5-325 MG TABLET PO PRN (22:37)
[2019-01-02] MEDS: ALBUTEROL/IPRATROPIUM 3 ML NEB RESP TX SCH ×4 (00:07→11:05)
[2019-01-02 05:35] LABS: Basophils % 0.2 % (0.0-0.8); Eosinophils # 0.3 10*3/uL (0.0-0.87); Eosinophils % 1.9 % (0.00-10.9); Hematocrit 29.3 VOL% (42.0-52.0); Hemoglobin 9.5 GM/DL (14.0-18.0); Immature Granulocytes % 1.6 %; Immature Granulocytes Absolute 0.21 #; Lymphocytes % 15.4 % (21.2-54.2); Mean Corpuscular HGB Conc 32.4 GM/DL (32-36); Mean Corpuscular Volume 99.7 FL (87-102); Mean Platelet Volume 10.2 FL (9.6-12.0); Monocytes % 6.1 % (1.7-12.7); Neutrophils % 74.8 % (38.7-73.9); Platelet Count 405 T/CUMM (130-400); Red Blood Count 2.94 MC/CUMM (3.8-5.5); White Blood Count 13.1 T/CUMM (4-12)
[2019-01-02 06:06] LABS: Calcium 8.3 MG/DL (8.5-10.1); Osmolality,Calculated 284.8 MOS/KG (273-304)
[2019-01-02] MEDS: POLYETHYLENE GLYCOL POWDER 17 GM PACK PO SCH (08:33)
[2019-01-02] MEDS: NABUMETONE 500 MG TABLET PO SCH (08:34)
[2019-01-02] MEDS: ACYCLOVIR 200 MG CAPSULE PO SCH (08:34)
[2019-01-02] MEDS: DOCUSATE SODIUM 100 MG CAPSULE PO SCH (08:34)
[2019-01-02] MEDS: CARVEDILOL 6.25 MG TABLET PO SCH (08:34)
[2019-01-02] MEDS: ASPIRIN EC 81 MG TABLET PO SCH (08:34)
[2019-01-02] MEDS: LOSARTAN 25 MG TABLET PO SCH (08:34)
[2019-01-02] MEDS: GABAPENTIN 600 MG TABLET PO SCH (08:34)
[2019-01-02] MEDS: metFORMIN 500 MG TABLET PO SCH (08:34)
[2019-01-02] MEDS: FUROSEMIDE 40 MG TABLET PO SCH (08:35)
[2019-01-02] MEDS: INDAPAMIDE 2.5 MG TABLET PO SCH (08:35)
[2019-01-02] MEDS: predniSONE 5 MG TABLET PO SCH (08:35)
[2019-01-02] MEDS: glyBURIDE 2.5 MG TABLET PO SCH (08:35)
[2019-01-02] MEDS: PIOGLITAZONE 15 MG TABLET PO SCH (08:35)
[2019-01-02] MEDS: CHLORHEXIDINE 0.12% ORAL RINSE 60 ML BOTTLE SWISH/SPIT SCH (08:35)
[2019-01-02] MEDS: PANTOPRAZOLE 40 MG TABLET PO SCH (08:35)
[2019-01-02] MEDS: FERROUS SULFATE 325 MG TABLET PO SCH (08:35)
[2019-01-02 12:01] VITALS: BP 122/62
[2019-01-02] MEDS ORDERED: metOLazone 5 MG TABLET PO SCH (13:00)
== END 2019-01-02 14:40 | disposition home health service (06) | DRG 233 ==
LOC: N.CL 10:29 → N.TELES 13:01 → N.CVR 12-20 08:13 → N.ICU 12-21 10:56 → N.TELES 12-25 21:29
PROVIDERS: ADMIT Internal Medicine Cardiovascular Disease; ATTEND Internal Medicine Cardiovascular Disease
PROC: CLCCHCL (ICD-10-PCS; 2018-12-18 13:45)

== ENCOUNTER 2020-07-17 11:46 | Observation (INO) ==
[2020-07-17 12:23] LABS: Basophils % 0.5 % (0.0-0.8); Eosinophils # 0.2 10*3/uL (0.0-0.87); Eosinophils % 2.4 % (0.00-10.9); Hematocrit 41.5 VOL% (42.0-52.0); Hemoglobin 14.4 GM/DL (14.0-18.0); Immature Granulocytes % 0.6 %; Immature Granulocytes Absolute 0.05 #; Lymphocytes % 33.9 % (21.2-54.2); Mean Corpuscular HGB Conc 34.7 GM/DL (32-36); Mean Corpuscular Volume 94.3 FL (87-102); Mean Platelet Volume 9.8 FL (9.6-12.0); Neutrophils % 52.6 % (38.7-73.9); Platelet Count 229 T/CUMM (130-400); Red Cell Distribution Width 12.7 % (9.3-17.3); White Blood Count 8.7 T/CUMM (4-12)
[2020-07-17] MEDS ORDERED: NITROGLYCERIN SL 0.4 MG TABLET SL PRN ×2 (13:02→15:21)
[2020-07-17] MEDS ORDERED: NITROGLYCERIN SL 0.4 MG TABLET SL ONE (13:04)
[2020-07-17 13:05] LABS: Alanine Aminotransferase 31 U/L (16-61); Albumin 3.3 G/DL (3.4-5.0); Alkaline Phosphatase 119 U/L (45-117); Aspartate Amino Transferase 20 U/L (0-37); Bilirubin,Total < 0.39 MG/DL (0.2-1.0); Blood Urea Nitrogen 19 MG/DL (7-18); Estimated Glom Filtration Rate 71 ML/MIN; Glucose 209 MG/DL (74-106); Osmolality,Calculated 282.7 MOS/KG (273-304); Total Protein 6.7 G/DL (6.4-8.3)
[2020-07-17] MEDS ORDERED: GLUCAGON 1 MG VIAL IM PRN (15:15)
[2020-07-17] MEDS ORDERED: POTASSIUM CHLORIDE 20 MEQ TABLET PO PRN (15:15)
[2020-07-17] MEDS ORDERED: MAGNESIUM SULF RIDER 4 GM in PREMIX 1 EACH IV PRN (15:15)
[2020-07-17] MEDS ORDERED: ONDANSETRON 4 MG/2 ML VIAL IV PRN (15:15)
[2020-07-17] MEDS ORDERED: DEXTROSE 50% 25 GM/50 ML VIAL IV PRN (15:15)
[2020-07-17] MEDS ORDERED: MAGNESIUM SULF RIDER 2 GM in PREMIX 1 EACH IV PRN (15:15)
[2020-07-17] MEDS ORDERED: tiZANidine 4 MG TABLET PO PRN (15:19)
[2020-07-17] MEDS ORDERED: SODIUM CHLORIDE 0.45% 1,000 ML IV SCH (15:30)
[2020-07-17] MEDS: INSULIN LISPRO 100 UNIT/ML SUBCUT SCH ×2 (17:28→22:02)
[2020-07-17 18:33] LABS: Troponin I < 0.015 NG/ML (0.00-0.045)
[2020-07-17] MEDS ORDERED: ENOXAPARIN 40 MG/0.4 ML SYRINGE SUBCUT SCH (21:00)
[2020-07-17] MEDS ORDERED: SIMVASTATIN 20 MG TABLET PO SCH (21:00)
[2020-07-17] MEDS ORDERED: ENALAPRIL 10 MG TABLET PO SCH (21:00)
[2020-07-17] MEDS ORDERED: CARBIDOPA/LEVODOPA 25-100 MG TABLET PO SCH (21:00)
[2020-07-17] MEDS ORDERED: GABAPENTIN 300 MG CAPSULE PO SCH (21:00)
[2020-07-17] MEDS: glyBURIDE 2.5 MG TABLET PO SCH (21:02)
[2020-07-17] MEDS: metFORMIN 500 MG TABLET PO SCH (21:03)
[2020-07-17] MEDS: carvediloL 6.25 MG TABLET PO SCH (21:03)
[2020-07-17] MEDS: NABUMETONE 750 MG TABLET PO SCH (21:07)
[2020-07-17 21:37] LABS: Troponin I < 0.015 NG/ML (0.00-0.045)
[2020-07-18 00:05] LABS: Troponin I < 0.015 NG/ML (0.00-0.045)
[2020-07-18] MEDS ORDERED: predniSONE 5 MG TABLET PO SCH (08:00)
[2020-07-18 08:23] LABS: Risk Ratio 3.31; Thyroid Stimulating Hormone 0.992 uIU/ml (0.358-3.74); VLDL CHOLESTEROL 53.4 MG/DL
[2020-07-18] MEDS ORDERED: PIOGLITAZONE 15 MG TABLET PO SCH (09:00)
[2020-07-18] MEDS ORDERED: ASPIRIN EC 81 MG TABLET PO SCH (09:00)
[2020-07-18] MEDS ORDERED: GABAPENTIN 300 MG CAPSULE PO SCH (09:00)
[2020-07-18] MEDS ORDERED: PANTOPRAZOLE 40 MG TABLET PO SCH (09:00)
[2020-07-18 09:07] VITALS: BP 126/81
[2020-07-18] MEDS: NABUMETONE 750 MG TABLET PO SCH (09:08)
[2020-07-18] MEDS: carvediloL 6.25 MG TABLET PO SCH (09:08)
[2020-07-18] MEDS: metFORMIN 500 MG TABLET PO SCH (09:08)
[2020-07-18] MEDS: glyBURIDE 2.5 MG TABLET PO SCH (09:08)
[2020-07-18] MEDS: INSULIN LISPRO 100 UNIT/ML SUBCUT SCH (09:50)
== END 2020-07-18 12:41 | disposition home or self-care (01) ==
LOC: N.EDINP 11:46 → N.ED 11:46 → N.TELES 17:19
PROVIDERS: ADMIT Family Medicine; ATTEND Family Medicine